=== PATIENT | male | born 1955 | race Caucasian/White ===

== ENCOUNTER 2018-01-21 09:11 | Inpatient (IN) ==
[2018-01-21 16:05] LABS: BASO# 0.01 X1000 (0.0-0.2); BASO% 0.1 % (0.0-0.8); EOS# 0.05 X1000 (0.0-0.7); EOS% 0.7 % (0.0-10.0); HEMATOCRIT 39.6 % (42.0-52.0); HEMOGLOBIN 12.9 g/dL (14.0-18.0); LYMPH# 1.58 X1000 (1.2-3.4); MCH 22.7 PG (27-31); MCHC 32.6 g/dL (33-37); MCV 69.6 FL (81-99); MONO# 0.59 X1000 (0.11-0.59); MONO% 8.6 % (1.7-9.3); MPV 10.3 FL (7.4-10.4); NEUT# 4.65 X1000 (1.4-6.5); NEUT% 67.6 % (42.2-75.2); PLT 193 X1000 (130-400); RBC 5.69 XMIL (4.7-6.1); RDW 18.2 % (11.5-14.5); WBC 6.88 X1000 (4.8-10.8)
[2018-01-21 16:10] LABS: AGAP 8; BUN 7 mg/dL (8-22); CALCIUM 9.4 mg/dL (8.8-10.2); CHLORIDE 101 mmol/L (98-107); COSMO 278; CREATININE 0.7 mg/dL (0.7-1.2); ESTIMATED GFR > 60; GLUCOSE 110 mg/dL (70-104); POTASSIUM 4.7 mmol/L (3.5-5.1); SODIUM 140 mmol/L (136-145); TCO2 31 mmol/L (25-35)
[2018-01-21 16:10] LABS: BILIRUBIN URINE NEGATIVE (NEGATIVE); BLOOD URINE NEGATIVE (NEGATIVE); COLOR YELLOW; GLUCOSE URINE NEGATIVE (NEGATIVE); KETONE URINE NEGATIVE (NEGATIVE); LEUKOCYTES URINE NEGATIVE (NEGATIVE); NITRITE URINE NEGATIVE (NEGATIVE); PH URINE 6.5; PROTEIN URINE NEGATIVE (NEGATIVE); SP GRAVITY URINE 1.004; TURBIDITY URINE CLEAR (CLEAR); UROBILINOGEN URINE 2 mg/dL (NORMAL)
[2018-01-21 16:11] LABS: UR EPITHELIAL CELLS <10 /HPF (<10); URINE BACTERIA NEGATIVE /HPF; URINE RBC <10 /HPF (<10); URINE WBC <10 /HPF (<10)
[2018-01-21 16:22] LABS: URINE SOURCE CLEAN CATCH
[2018-01-21 16:27] LABS: UR AMPHETAMINES QUAL NONE DETECTED (NONE DETECT); UR BARBITUATES QUAL NONE DETECTED (NONE DETECT); UR BENZODIAZEPIN QUAL NONE DETECTED (NONE DETECT); UR CANNABINOIDS QUAL NONE DETECTED (NONE DETECT); UR COCAINE QUAL NONE DETECTED (NONE DETECT); UR METHADONE QUAL NONE DETECTED (NONE DETECT); UR OPIATES QUAL NONE DETECTED (NONE DETECT); UR OXYCODONE QUAL NONE DETECTED (NONE DETECT); UR PCP QUAL NONE DETECTED (NONE DETECT)
--- NOTE | 2018-01-21 16:29 | Diag Imaging Result Doc PS360 ---
EXAM: CT HEAD W/O CONTRAST INDICATION: DISORIENTATION TECHNIQUE: This exam was performed using automated exposure control, adjustment of mA or kV according to patient size, and/or use of iterative reconstruction technique. COMPARISON: None. FINDINGS: There are at least two prominent and ill-defined frontal lobe masses on the right and the left and there is a mass near the midline of the cerebellum. The cerebellar mass measures approximately 3.1 x 3.1 cm. It is effacing the fourth ventricle and cerebral aqueduct. The lateral ventricles and fourth ventricle are somewhat prominent suggesting at least mild obstructive hydrocephalus. The dominant right frontal lobe mass measures up to 3.6 x 2.7 cm. The left frontal lobe mass measures up to 4.3 x 2.6 cm. All of these masses exhibit significant surrounding vasogenic edema. There also appears to be a small 7 mm parafalcine nodule in the right frontal lobe that can be seen on image 38. There is a another small mass in the right frontal lobe more inferiorly on image 16 measuring up to 13 mm. These lesions are most intracranial metastatic disease. No intracranial hemorrhage is appreciated. The surrounding soft tissues and bony structures are essentially unremarkable. IMPRESSION: 1.Bilateral frontal lobe masses and a central cerebellar mass, most with surrounding vasogenic edema most consistent with metastatic disease. 2.Effacement of the fourth ventricle and cerebral aqueduct by the cerebellar masses with associated mild dilation of the lateral ventricles and third ventricle. The findings were discussed with Flash Cohn MD at 01/21/2018 4:26 PM and was acknowledged. Electronically signed by Jared Vargas 01/21/2018 4:26 PM
[2018-01-21] MEDS ORDERED: KEPPRA 1,500 MG in NS 100 ML IV ONE (16:38)
[2018-01-21] MEDS ORDERED: DECADRON IV ONE (16:38)
--- NOTE | 2018-01-21 16:47 | PROVIDER DOCUMENTATION ---
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 CURRENTLY LIVING BY HIMSELF AND STATES HE FEELS SAD HE HAS NOT BEING IN TOUCH WITH OR DAUGHTER FOR YEARS AND FELT THEY LEFT HIM. Review of Systems - Adult - REVIEW OF SYSTEMS - ADULT Constitutional: denies: chills, fever, night sweats, weight loss Eyes: denies: discharge, blurred vision Ears, Nose, Mouth & Throat: reports: no symptoms reported Cardiovascular: reports: no symptoms reported Respiratory: reports: no symptoms reported Gastrointestinal: reports: no symptoms reported Genitourinary: reports: no symptoms reported Musculoskeletal: reports: no symptoms reported Integumentary: reports: no symptoms reported Neurological: reports: ataxia, dizziness/vertigo, loss of balance Psychiatric: reports: depression, emotional problems. denies: panic attacks, suicidal thoughts Endocrine: denies: cold intolerance, heat intolerance Past History - Adult - PAST MEDICAL HISTORY-ADULT Review of Records: reports: Old Records Reviewed Physical Exam-General - PHYSICAL EXAM-ADULT Initial Vital Signs Reviewed: Yes - CONSTITUTIONAL General Appearance: alert, no apparent distress, thin, slow to respond - EYES Eyes: PERRL/EOMI - HEAD, EARS, NOSE, MOUTH & THROAT HENMT: normocephalic/atraumatic, moist mucous membranes - NECK Neck: full range of motion - RESPIRATORY Respiratory: chest non-tender, lungs clear, normal breath sounds, no pleuratic chest pain, no respiratory distress, no accessory muscle use - CARDIOVASCULAR Cardiovascular: normal peripheral pulses, regular rate, rhythm, no edema, no gallop, no JVD - GASTROINTESTINAL (ABDOMEN) Abdominal Exam: normal bowel sounds, non tender, soft - MUSCULOSKELETAL Back Exam: normal inspection Extremity: normal range of motion, non-tender. negative: normal gait - SKIN Integumentary: normal color, normal turgor - NEUROLOGIC Neurologic: other (ATAXIA AND POOR FINGER TO NOSE EXAM). negative: facial droop , focal weakness, motor weakness - PSYCHIATRIC Psych/Mental Status: oriented x 3 (SLOW TO RESPOND.), other (BEHAVIOR CHANGES.) Progress - PLAN OF CARE/RESULTS Progress/Plan/Lab Results: Vital Signs - 8 hr 01/21/18 09:20 01/21/18 15:17 01/21/18 15:19 Temperature 97.5 F L Pulse Rate 75 70 66 Respiratory Rate 18 21 22 Blood Pressure 173/108 172/113 O2 Sat by Pulse Oximetry 98 96 01/21/18 15:20 01/21/18 15:30 01/21/18 15:40 Temperature Pulse Rate 64 72 67 Respiratory Rate 17 18 21 Blood Pressure O2 Sat by Pulse Oximetry 97 95 97 01/21/18 15:50 Temperature Pulse Rate 70 Respiratory Rate 15 Blood Pressure O2 Sat by Pulse Oximetry 95 Laboratory Results - last 24 hr 01/21/18 01/21/18 01/21/18 15:46 15:46 15:58 WBC 6.88 RBC 5.69 Hgb 12.9 L Hct 39.6 L MCV 69.6 L MCH 22.7 L MCHC 32.6 L RDW Std Deviation 18.2 H Plt Count 193 MPV 10.3 Neut % (Auto) 67.6 Lymph % (Auto) 23.0 [place] % (Auto) 8.6 Eos % (Auto) 0.7 Baso % (Auto) 0.1 Neut # (Auto) 4.65 Lymph # (Auto) 1.58 [place] # (Auto) 0.59 Eos # (Auto) 0.05 Baso # (Auto) 0.01 Sodium 140 Potassium 4.7 Chloride 101 Carbon Dioxide 31 Anion Gap 8 BUN 7 L Creatinine 0.7 Estimated GFR/1.73 m2 > 60 BUN/Creatinine Ratio 10 Glucose 110 H Calculated Osmolality 278 Calcium 9.4 Magnesium 2.0 Urine Source CLEAN CATCH Urine Color YELLOW Urine Turbidity CLEAR Urine pH 6.5 Ur Specific [place] 1.004 Urine Protein NEGATIVE Ur Glucose (Stick) NEGATIVE Ur Ketones (Stick) NEGATIVE Urine Blood NEGATIVE Urine Nitrite NEGATIVE Urine Bilirubin NEGATIVE Urobilinogen Dipstick 2 A Urine Leukocytes NEGATIVE Urine WBC (Auto) <10 Urine RBC (Auto) <10 U Epithel Cells (Auto) <10 Urine Bacteria (Auto) NEGATIVE Urine Opiates Screen Ur Oxycodone Screen Ur Methadone, Qual Ur Barbiturates Screen Ur Phencyclidine Scrn Ur Amphetamines Screen U Benzodiazepines Scrn Urine Cocaine Screen U Cannabinoids Screen 01/21/18 15:58 WBC RBC Hgb Hct MCV MCH MCHC RDW Std Deviation Plt Count MPV Neut % (Auto) Lymph % (Auto) [place] % (Auto) Eos % (Auto) Baso % (Auto) Neut # (Auto) Lymph # (Auto) [place] # (Auto) Eos # (Auto) Baso # (Auto) Sodium Potassium Chloride Carbon Dioxide Anion Gap BUN Creatinine Estimated GFR/1.73 m2 BUN/Creatinine Ratio Glucose Calculated Osmolality Calcium Magnesium Urine Source Urine Color Urine Turbidity Urine pH Ur Specific [place] Urine Protein Ur Glucose (Stick) Ur Ketones (Stick) Urine Blood Urine Nitrite Urine Bilirubin Urobilinogen Dipstick Urine Leukocytes Urine WBC (Auto) Urine RBC (Auto) U Epithel Cells (Auto) Urine Bacteria (Auto) Urine Opiates Screen NONE DETECTED Ur Oxycodone Screen NONE DETECTED Ur Methadone, Qual NONE DETECTED Ur Barbiturates Screen NONE DETECTED Ur Phencyclidine Scrn NONE DETECTED Ur Amphetamines Screen NONE DETECTED U Benzodiazepines Scrn NONE DETECTED Urine Cocaine Screen NONE DETECTED U Cannabinoids Screen NONE DETECTED Orders Category Date Time Status CT HEAD W/O CONTRAST [CT] Stat Exams 01/21/18 15:38 Completed cxr [CHEST-2 VIEWS] [RAD] Stat Exams 01/21/18 16:37 Ordered BASIC METABOLIC PANEL [CHEM] Stat Lab 01/21/18 15:46 Completed CBC WITH ELECTRONIC DIFF [HEME] Stat Lab 01/21/18 15:46 Completed MAGNESIUM [CHEM] Stat Lab 01/21/18 15:46 Completed URINALYSIS W/POSS RFLX CULT [URINALYSIS] Stat Lab 01/21/18 15:58 Completed URINE DRUG SCREEN Stat Lab 01/21/18 15:58 Completed Dexamethasone [Decadron] Med 01/21/18 16:38 Discontinued 10 mg IV NOW ONE Levetiracetam [Keppra] 1,500 mg Med 01/21/18 16:38 Active 0.9% Sodium Chloride Inj [Ns] 100 ml IV NOW Result Diagrams: 01/21/18 15:46 01/21/18 15:46 - REASSESSMENT Reassessment #1 Time Reassessed: 16:51 Status: other (RECEIVED CALL FROM RADIOLOGIST WITH MULTIPLE BRAIN METS AND ALSO HYDROCEPHALUS. I WILL START PATIENT ON DECADRONE 10MG IV AND KEPPRA 1500MG IV FOR SEUZIRE PRVENTION. GIVEN THAT PATIENT IS A CHRONIC SMOKER AND NO OTHER MEDICAL CONDITIONS; WILL GET PA/LAT CXR. PATIENT DOESN'T HAVE ANY SOCAIL SUPPORT. I HAVE CONSULT THE HOSPITALIST; APPRECIATE THEIR ASSISTANCE.) Reassessment #2 Time Reassessed: 17:15 Status: other (SPOKE TO THE [facility] WHO IS CURRENTLY[facility] FOR HEMO/ONCOLOGY TO CALL BACK AND WLL INFORM ME. APPRECIATE HOSPITALIST ASSITANCE.) Departure - Departure Date of Disposition Decision: 01/21/18 Time of Disposition Decision: 16:53 DIAGNOSIS: Brain metastases Disposition: ADMITTED INPATIENT 09 Certified Medical Emergency: Emergent Condition: Poor Referrals and Follow-Ups: None,PCP [Primary Care Provider] - - Critical Care Note This patient required my direct & personal management of CC.: No Attestation - Physician/ MICHAEL Attestation Patient care was provided by Advanced Practice Provider:: No The physician spent face to face time with patient:: Yes Advanced Practice Provider documentation review:: Supervising physician onsite and consulted in the evaluation and care of this patient. The physician did have a face to face encounter with the patient.
[2018-01-21] MEDS: NS 1,000 ML IV SCH (17:45)
--- NOTE | 2018-01-21 18:53 | Diag Imaging Result Doc PS360 ---
EXAM: CHEST-2 VIEWS INDICATION: MULTIPLE BRAIN METS; HEAVY SMOKER; NO OTHER MED HX TECHNIQUE: 2 views COMPARISON: None. FINDINGS: There is a vague mass involving the right midlung zone and the right hilum is prominent. This is suspicious for malignancy given the findings on recent head CT. There is no discrete pleural fluid collection or pneumothorax. The cardiac silhouette is unremarkable. IMPRESSION: Vague mass in the right midlung zone with a prominent right hilum suspicious for neoplasm. Electronically signed by Jared Vargas 01/21/2018 6:50 PM
[2018-01-21] MEDS ORDERED: ZOFRAN IV PRN (19:06)
--- NOTE | 2018-01-21 19:20 | Diag Imaging Result Doc PS360 ---
EXAM: CT THORAX/ABD/PELVIS W/CON INDICATION: metastatic brain cancer TECHNIQUE: This exam was performed using automated exposure control, adjustment of mA or kV according to patient size, and/or use of iterative reconstruction technique. COMPARISON: None. FINDINGS: CHEST: There is a right upper lobe lung mass that is highly suspicious for neoplasm. This is probably the primary malignancy that was the source of the metastatic brain lesions seen on a recent head CT. It measures 4.9 x 3.1 cm axially. There is also severe right hilar and mediastinal lymphadenopathy. For reference, there is a large right paratracheal kevyn mass that measures up to 5.6 x 3.5 cm axially. There is mild subsegmental atelectasis at the lung bases. There is mild cardiomegaly. There is nothing to suggest bony metastatic disease to the thorax. ABDOMEN/PELVIS: There is cholelithiasis including a very large calcified stone in the lumen of the gallbladder. No definite pericholecystic inflammatory changes appreciated. The liver, spleen, and pancreas are unremarkable. There are bilateral adrenal masses. They are somewhat low dense and may represent large adenomas. However, metastatic adrenal lesions cannot be excluded. The right adrenal mass measures 2.5 x 1.8 cm and the left adrenal mass measures up to 2.0 x 2.5 cm in the greatest axial dimensions. There is a small left renal cyst and a few left renal cortical defects suggesting mild scarring. The kidneys are unremarkable, otherwise. The urinary bladder wall appears somewhat thickened. Consider mild cystitis. Please correlate clinically. The prostate is also somewhat enlarged. This thickening could be due to trabecular thickening related to the enlarged prostate. There is increased stool in the rectum which is mildly distended. This may represent a small rectal fecal impaction. The appendix is normal. There is uncomplicated diverticulosis coli. The remainder of the GI tract is essentially unremarkable. There are degenerative changes throughout the spine. There is nothing to necessarily suggest bony metastatic disease to the abdomen or pelvis. IMPRESSION: 1.Right upper lobe lung mass and severe right hilar and mediastinal lymphadenopathy that is highly consistent with malignancy. 2.Bilateral adrenal masses that could represent large adenomas. However, metastatic lesions cannot be excluded. 3.Cholelithiasis. 4.Mild urinary bladder wall thickening. Correlate clinically to exclude a component of cystitis. 5.Questionable mild rectal fecal impaction. 6.Other external/nonacute findings detailed above. Electronically signed by Jared Villalobos/27/2018 7:18 PM
[2018-01-21] MEDS ORDERED: SODIUM CHLORIDE 0.9% 10 ML ONE (22:51)
[2018-01-21] MEDS: PROTONIX IV SCH (22:52)
[2018-01-21] MEDS: FLOMAX PO SCH (22:56)
[2018-01-22] MEDS: KEPPRA 500 MG in NS 100 ML IV SCH ×2 (03:49→15:50)
[2018-01-22] MEDS: DECADRON IV SCH ×4 (03:51→21:15)
--- NOTE | 2018-01-22 04:25 | HISTORY AND PHYSICAL ---
PRIMARY CARE PHYSICIAN: None. PRESENTING COMPLAINT: Generalized weakness, multiple falls, and unsteady gait. HISTORY OF PRESENTING COMPLAINT: Mr. Magdaleno is a 62-year-old male, with no significant past medical history, except for tobacco abuse and alcohol use, came to the emergency department because his friends have been concerned that he has been falling on the job. He also refers to be feeling remarkably weak. He has no appetite for the past couple months, and he thinks he has lost over 20 pounds in the last 2 to 3 months. 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 He came to the emergency department. He was evaluated. His initial vitals revealed blood pressure was 173/108, pulse 75, respiration 18, temperature 97.5. A CT scan of the brain was done, which shows multiple brain masses, with vasogenic edema. We were consulted for admission and further medical care. Initially, I understand [place] was consulted for neurosurgical evaluation. However, [place] is on diversion, and I have also discussed this case with the oncologist, and he is okay with the patient staying here in [facility]. PAST MEDICAL HISTORY: Unremarkable. PAST SURGICAL HISTORY: None. ALLERGIES: None. SOCIAL HISTORY: The patient lives by himself. He has a daughter who lives at a different city. He does not really maintain communication with her that much. 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 He has more than 40 years pack history, and he also drinks about 6 packs of beer on a daily basis. According to him, he has somehow cut down on the number of the drinks because he has just not been feeling well lately. REVIEW OF SYSTEMS: A 14-point review of systems conducted with Mr. Magdaleno unremarkable, except what we have in the HPI. Specifically, he denies any chest pain. He denies any hemoptysis. He denies any abdominal pain. No diarrhea. No hematemesis. PHYSICAL EXAMINATION: CURRENT VITALS: Blood pressure is 172/113, pulse is 64, respiration is 18, and temperature is 97.5. Patient is saturating 97% on room air. GENERAL: Mr. Magdaleno is a 62-year-old male. He was in bed. He was not in any remarkable cardiopulmonary distress. HEENT: Mucosa is pink, slightly dry. Anicteric. Acyanotic. He looks undernourished. Head is normocephalic and atraumatic. NECK: Supple. There is no JVD, no carotid bruit, and no thyromegaly. CHEST: The chest has a barrel shape. Air entry is bilaterally reduced. I did not hear any crepitations, but there is a prolonged expiratory phase of respiration. CARDIOVASCULAR: Regular rate and rhythm. There are no murmurs, no rubs, no gallops. [place] beat is at the 5th intercostal space, midclavicular line. GASTROINTESTINAL: Abdomen is soft, nontender. Bowel sounds are present. There is no hepatosplenomegaly. EXTREMITIES: No pedal edema. Distal pulses are present. GENITOURINARY: Unremarkable. I did not feel any masses of the scrotum. However, this was done over his pants because he felt slightly shy. CENTRAL NERVOUS SYSTEM: The patient was awake, alert, was oriented x4. Power was generally weak all over, about 4- over 5 in all extremities. Sensation was intact. Cranial nerves 2-12 were grossly examined, and they were unremarkable. I did not really examine his gait because of risk of fall, but his pupils were equal and reactive to light. I think he did have a little bit of nystagmus. LABORATORY DATA: WBC 6.88, hemoglobin is 12.9, platelet count of 193,000. Chemistry is also reviewed, and is completely normal. DIAGNOSTIC STUDIES: A CT scan of the head shows multiple frontal lobe masses, and a central cerebellar mass. ASSESSMENT AND PLAN: 1. Generalized weakness and multiple falls on presentation, likely due to the underlying malignancy. The CT scan shows multiple masses in the brain. We are not sure where the primary is. We are going to do a CT scan of the chest and abdomen. Oncology has already been consulted. We will consult Neurology as well. We will also consult Radiation Oncology. The patient will be started on Decadron and seizure prophylaxis. 2. Multiple bilateral brain masses, likely metastatic lesions, with surrounding vasogenic edema. Patient has been started on Decadron. Please see #1 as well. 3. Tobacco abuse. Patient has been counseled. We presume that the patient has a primary lung disease. 4. Suspected chronic obstructive pulmonary disease. The patient does have a prolonged expiratory phase of respiration, has a barrel shape. I think he has an undiagnosed chronic obstructive pulmonary disease. We will use nebulization p.r.n. if needed, and we will get a CT scan of the chest to have a better anatomy of his lungs. In general, I think Mr. Magdaleno is critical, has multiple masses in the brain. Primary is yet to be determined. We have ordered a CT scan of the abdomen and pelvis. We will review this. I have already notified Dr. Camacho. We have discussed the case. He recommends to keep the patient on Decadron 4 mg q.6, proton pump inhibitor, and consult Dr. Calvo tomorrow morning for radiation to be started. We will follow up with further recommendations from him and from the other subspecialties. cc: Lam Odom MD
[2018-01-22 05:53] LABS: AGAP 10; ALB/GLOB RATIO 1.2; ALBUMIN 3.7 g/dL (3.5-5.0); ALKALINE PHOSPHATASE 54 U/L (32-122); BUN 9 mg/dL (8-22); CALCIUM 8.7 mg/dL (8.8-10.2); CHLORIDE 103 mmol/L (98-107); COSMO 278; CREATININE 0.6 mg/dL (0.7-1.2); ESTIMATED GFR > 60; GLUCOSE 103 mg/dL (70-104); GOT 17 U/L (10-34); GPT 16 U/L (10-44); MAGNESIUM 1.9 mg/dL (1.5-2.7); POTASSIUM 4.4 mmol/L (3.5-5.1); SODIUM 140 mmol/L (136-145); TCO2 27 mmol/L (25-35); TOTAL BILIRUBIN 0.65 mg/dL (0.20-1.00); TOTAL PROTEIN 6.8 g/dL (6.3-8.3)
[2018-01-22 05:56] LABS: BASO# 0.01 X1000 (0.0-0.2); BASO% 0.1 % (0.0-0.8); HEMATOCRIT 39.4 % (42.0-52.0); HEMOGLOBIN 12.7 g/dL (14.0-18.0); LYMPH% 10.3 % (20.5-51.1); MCH 22.4 PG (27-31); MCHC 32.2 g/dL (33-37); MCV 69.4 FL (81-99); MONO# 0.21 X1000 (0.11-0.59); MONO% 3.1 % (1.7-9.3); MPV 10.7 FL (7.4-10.4); NEUT# 5.85 X1000 (1.4-6.5); NEUT% 86.5 % (42.2-75.2); PLT 196 X1000 (130-400); RBC 5.68 XMIL (4.7-6.1); WBC 6.77 X1000 (4.8-10.8)
[2018-01-22] MEDS: HUMULIN R SUBQ SCH ×4 (06:50→20:31)
[2018-01-22 07:16] LABS: IRON SATURATION 30 %; TIBC 251 ug/dL; TOTAL IRON 75 ug/dL (53-167); UNBOUND IRON 176 ug/dL (112-346)
[2018-01-22 07:32] LABS: FERRITIN 126 ng/mL (30-400)
--- NOTE | 2018-01-22 07:37 | PROGRESS NOTE ---
DATE: 01/22/2018 SUBJECTIVE: This morning, Mr. Magdaleno refers to be doing fairly okay. He said he feels slightly stronger but, for most part, he is generally weak. OBJECTIVE: Vital Signs: Blood pressure is 139/104, pulse is 74, respiration is 24, temperature is 98.4. General: Mr. Magdaleno is a 62-year-old gentleman. He is in bed. He was not in any cardiopulmonary distress. Mucosa is pink and moist. Anicteric. Acyanotic. Neck supple. No JVD. Chest: Air entry is bilaterally reduced. I think there is some mild rhonchi in the right posterior lung field. Cardiovascular: Regular rate and rhythm. No murmurs, no rubs, no gallops. Abdomen was soft, nontender. Bowel sounds present. CW OPERATOR: The patient is awake, alert, oriented, a little bit slow in his speech but, for the most part, he is very clear. His motor is generally 4/5 in all extremities. LABORATORY DATA: WBC is 6.77, hemoglobin is 12.7, platelet count 196,000. Chemistry is also reviewed. TSH is 0.22. LABORATORY DATA: A CT scan of the head was reviewed yesterday. A CT scan of the chest, abdomen, and pelvis showed that there is a right upper lobe mass and severe right hilar and mediastinal lymphadenopathy that is highly consistent with malignancy. There are bilateral adrenal masses that could represent a large adenomas; however, metastatic lesions cannot be excluded. There is cholelithiasis, and there is mild urinary bladder with thickening. The patient, however, denies any urinary symptoms. ASSESSMENT: 1. Generalized weakness and fall on presentation secondary to underlying malignancy. 2. Bilateral multiple brain metastasis, presumably metastatic lesions. Patient is currently on Decadron. Both Dr. Camacho and Radiation Oncology have all been consulted. 3. Large right upper lobe mass with severe right hilar and mediastinal lymphadenopathy highly suggestive of malignancy. We think this is probably the primary source. I will be waiting on the oncologist to review the patient so that we all can have a better idea where to get a sample. It will appear, however, that the lesion in the right upper lobe can be accessed through CT-guided biopsy. Will be pending Heme-Onc recommendations. 4. Suspected underlying chronic obstructive pulmonary disease. 5. Constipation. This will be addressed with bowel regimen. 6. Bilateral adrenal masses suspicious for metastases. 7. Thickened bladder wall with enlarged prostate most likely due to underlying benign prostatic hypertrophy. 8. Mild clinical volume depletion. The patient will continue with gentle hydration. In general, Mr. Magdaleno has a newly diagnosed malignancy, and we think the primary is coming from the lungs. I will be waiting on Heme-Onc evaluation today to discuss a better way to have a tissue diagnosis. The patient is also pending Dr. Calvo's evaluation to start radiation therapy on the brain because of the vasogenic and the other findings associated. cc: Lam Odom MD
--- NOTE | 2018-01-22 08:49 | CONSULTATION ---
DATE OF CONSULTATION: 01/22/2018 HISTORY OF PRESENT ILLNESS: Mr. Magdaleno is 62 years old and there is noncontrast CT evidence of multiple lesions with surrounding edema, concerning for metastatic disease. History from the patient is that he has not felt well for several weeks. He believes he has lost weight, but cannot be specific. He has lost appetite. He has had some headache in recent days. He has felt weak all over. He has not noticed weakness in one limb or group of limbs more than another. He has had some falls in the last few weeks. He feels clumsy, but does not notice clumsiness in one limb more than another. He has not noticed vision disturbance or speech difficulty. Appetite has been poor, but he has not had trouble chewing or swallowing. PAST HISTORY: He reports no history of diagnosis of cancer. He has not had serious head injury. He has never had diagnosed stroke, seizure, other neurologic event. SOCIAL HISTORY: He smokes cigarettes. He reports ethanol intake is approximately 1 pitcher of beer and a few or several shots of whiskey most days. PHYSICAL EXAMINATION: On exam, he is awake, alert, attentive. He appears tired , but otherwise appropriate. Speech is minimally dysarthric, but easily understood. Language function is intact. Head and neck are unremarkable. There is not meningismus. He has full visual [place] tested grossly by confrontational finger-counting. Extraocular movements are full. Facial motility is symmetric. Gag is intact. Tongue is midline. Shoulder shrug is good. He had quick fatigue with motor testing, but he was able to demonstrate good power throughout. Strength grade is at least 4+/5 in the deltoids. He has difficulty with [id number] and [id number] testing bilaterally, worse on the right. He has diminished proprioception at the great toe MTP joint bilaterally , also worse on the right. He reports good pinprick appreciation over the hands and arms, and proximally over the legs. He has diminished pinprick appreciation in a stocking pattern over the feet bilaterally , equal on the left and right. I did not test his gait. Reflexes are 1+ symmetrically at the wrists and trace at the ankles. Plantar response is silent bilaterally. IMPRESSION: Right worse than left ataxia, sense of generalized weakness without definite major motor deficit, clinical evidence of peripheral neuropathy. I suspect he has primary lung cancer in light of the CT findings and history of smoking. Other primary malignancy is not excluded. Oncology has been consulted. History is not typical of multifocal abscess. The peripheral neuropathy is more likely related to chronic alcohol use than to a subacute/ acute paraneoplastic process. Ataxia is likely related to the cerebellar findings on imaging with concern for posterior column myelopathy and B12 deficiency causing proprioception loss out of proportion to the primary sensory deficit. There may be some cognitive impairment associated with the frontal lesions, but I do not find definite hemiparesis at this point. I do not have any urgent suggestion from Neurology standpoint. Further plans will depend on Oncology workup. Thanks for asking Neurology to see Mr. Magdaleno. cc: MD HETAL Tavera III
--- NOTE | 2018-01-22 13:57 | HEMO/ONC CONSULTATION ---
DATE: 01/22/2018 CHIEF COMPLAINT: We are being consulted for further evaluation and management of multiple brain masses. HISTORY OF PRESENT ILLNESS: Mr. Magdaleno is a 62-year-old male who presented to the emergency department due to falling a lot, and according the patient says he has not been himself. The patient says he has also lost over approximately 20 pounds in the last couple months. The patient says he falls down without any major reason. The patient wanted to have a CT of the brain which was done and which showed multiple brain masses with some vasogenic edema. The patient was admitted at that time for further evaluation and management. PAST MEDICAL HISTORY: None. PAST SURGICAL HISTORY: None. ALLERGIES: No known drug allergies. FAMILY HISTORY: Noncontributory. SOCIAL HISTORY: The patient smokes cigarettes daily for the past 40 years. Patient also drinks about a six-pack of beer daily. The patient denies any illicit drug use. HOME MEDICATIONS: None. REVIEW OF SYSTEMS: Negative except as mentioned in HPI. PHYSICAL EXAM: Vital Signs: Temperature 98.5 degrees, heart rate 80, respiratory rate 26, blood pressure 135/96, saturation 100% on nasal cannula. General: Patient is awake, lying in bed, no acute distress noted. HEENT: Anicteric. Pupils PERRLA. Mucous membranes dry. Neck: Supple. Trachea midline. No JVD. Lymph node survey: No palpable lymphadenopathy. Chest: Bilateral breath sounds diminished bilaterally. Some mild rhonchi bilaterally as well. Cardiovascular: Normal S2. Regular rate and rhythm. No murmurs, rubs, or gallops. Gastrointestinal: Abdomen is soft, nontender. Bowel sounds present in all 4 quadrants. No hepatosplenomegaly noted. Skin: Warm, dry and intact. No petechiae, no clubbing, no rashes, no cyanosis. Neurological: Alert and oriented x3. LABORATORY DATA: White count 6.77, hemoglobin 12.7, hematocrit 39.4, platelets are 196,000. Potassium 4.4, BUN 9, creatinine 0.6. HDL of 5. CEA 7. Radiology reports- CT of the head showed bilateral frontal lobe masses and central cerebral mass with surrounding vasogenic edema, most consistent with metastatic disease. The patient with fourth ventricle and cerebral aqueduct by the cerebral masses associated with mild dilation of the lateral ventricles and 3rd ventricle. A CT of the chest, abdomen and pelvis showed right upper lobe lung mass and severe right hilar and mediastinal lymphadenopathy that is highly consistent with malignancy. Bilateral adrenal masses that could represent large adenomas; however, metastatic lesions cannot be excluded. Cholelithiasis, and mild urinary bladder thickening correlate clinically. ASSESSMENT AND PLAN: 1. Multiple brain masses: Multiple brain masses noted on CT with some vasogenic edema. Continue with Decadron and seizure prophylaxis as ordered by primary medical team and neurology. Dr. Calvo has been consulted for the patient for radiation. Continue to monitor closely. 2. Right upper lobe lung mass with severe right hilar and mediastinal lymphadenopathy: CEA is elevated at 7. Pulmonology has been consulted to evaluate for possible bronchoscopy with biopsies. Once we get the biopsies we can look at the pathology results and know what type of treatment will be best at that time. We will continue to monitor closely. 3. Generalized weakness with multiple falls: This is more likely due to his malignancy at this time. Continue to work on improving strength once patient is stable. Physical therapy has been consulted as well. Continue recommendation by primary medical team. 4. Tobacco abuse. Patient has been counseled. 5. GI prophylaxis: Continue Protonix, has been ordered. Plan of care discussed with Dr. Camacho. Dictated by KARMA Oliveros for Von Camacho MD Patient seen and examined. As above. Scans revealed right upper lobe lung mass with significant right hilar and mediastinal adenopathy and multiple brain metastasis with vasogenic edema. Dr. Calvo has been consulted. Patient is on steroids. Pulmonology has been consulted for biopsy. Well plan further management accordingly. Von Camacho M.D. cc: KARMA Oliveros MD [facility]
[2018-01-22] MEDS: NS 1,000 ML IV SCH (15:06)
[2018-01-22] MEDS: PROTONIX IV SCH (20:25)
[2018-01-22] MEDS: FLOMAX PO SCH (20:25)
[2018-01-23] MEDS ORDERED: ATIVAN IV ONE (03:19)
[2018-01-23] MEDS: KEPPRA 500 MG in NS 100 ML IV SCH ×2 (04:42→16:07)
[2018-01-23] MEDS: DECADRON IV SCH ×5 (04:44→22:08)
[2018-01-23 05:26] LABS: EOS# 0.01 X1000 (0.0-0.7); EOS% 0.1 % (0.0-10.0); HEMATOCRIT 38.5 % (42.0-52.0); HEMOGLOBIN 12.7 g/dL (14.0-18.0); IMM GRAN# 0.02 X1000 (0.0-0.04); IMM GRAN% 0.2 % (0.0-0.5); LYMPH# 1.08 X1000 (1.2-3.4); LYMPH% 9.8 % (20.5-51.1); MCH 22.7 PG (27-31); MCV 68.8 FL (81-99); MONO# 0.76 X1000 (0.11-0.59); MONO% 6.9 % (1.7-9.3); MPV 11.3 FL (7.4-10.4); NEUT# 9.14 X1000 (1.4-6.5); PLT 230 X1000 (130-400); RDW 16.5 % (11.5-14.5); WBC 11.01 X1000 (4.8-10.8)
[2018-01-23 05:31] LABS: AGAP 8; ALB/GLOB RATIO 1.2; ALBUMIN 3.7 g/dL (3.5-5.0); ALKALINE PHOSPHATASE 55 U/L (32-122); BUN 12 mg/dL (8-22); CALCIUM 8.9 mg/dL (8.8-10.2); CHLORIDE 104 mmol/L (98-107); COSMO 279; CREATININE 0.7 mg/dL (0.7-1.2); ESTIMATED GFR > 60; GLUCOSE 102 mg/dL (70-104); GOT 17 U/L (10-34); GPT 16 U/L (10-44); POTASSIUM 4.6 mmol/L (3.5-5.1); SODIUM 140 mmol/L (136-145); TCO2 28 mmol/L (25-35); TOTAL BILIRUBIN 0.52 mg/dL (0.20-1.00); TOTAL PROTEIN 6.9 g/dL (6.3-8.3)
[2018-01-23] MEDS: HUMULIN R SUBQ SCH ×4 (06:20→21:49)
--- NOTE | 2018-01-23 06:59 | PULMONOLOGY CONSULTATION ---
DATE: 01/22/2018 REASON FOR CONSULTATION: Lung mass with brain mets. HISTORY OF PRESENT ILLNESS: Mr. Magdaleno is a 62-year-old white male with extensive tobacco history, history of daily alcohol use who has been having episodes of weakness and falling with weight loss over the last 2-3 months. He reports he was treated for lung cancer at the [facility] in [place] approximately 3 years ago. By his description, no biopsy was performed. He reports it was a "laser" approach, but the manner of the treatment is not completely clear. He did not have an open surgical procedure. He reports he was scheduled to follow up every 3 months, but never returned for appropriate followup. He presented to the emergency room with some disorientation and CT scan revealed bilateral frontal lobe masses and a cerebellar mass with vasogenic edema. CT scan of the abdomen and pelvis today revealed a right upper lobe mass with significant right hilar and mediastinal adenopathy with bilateral adrenal masses. PAST MEDICAL HISTORY/PROBLEM LIST: 1. Prior treatment for lung cancer with failure to follow up as outlined above. 2. Daily alcohol use. SOCIAL HISTORY: Patient has ongoing tobacco use. He has daily alcohol use. 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 He is estranged from family. SURGICAL HISTORY: None reported. FAMILY HISTORY: Unremarkable to current presentation. PHYSICAL EXAMINATION: GENERAL: Reveals a thin white male who is awake, alert and conversant. VITAL SIGNS: BP 135/90. Heart rate 77, respiratory rate 16, oxygen saturation 94%. HEENT: Pupils are equal and reactive. Oropharynx appears clear. NECK: Supple. CHEST: Reveals prolonged expiratory phase. CARDIAC: S1, S2. ABDOMEN: Soft. EXTREMITIES: Without edema. NEUROLOGICAL: Cranial nerves 2-12 appear to be grossly intact. Gait not tested. LABORATORIES: CT scan of the brain and CT scan of the thorax as per above. Sodium 140, potassium 4.4, chloride 103, bicarbonate 27, BUN 9, creatinine 0.6. White blood count 6.77, hemoglobin 12.7, hematocrit 39.7, MCV 69.4. IMPRESSION: 62-year-old with a history of lung cancer by his description who presents with a lung mass with evidence of cerebral metastasis. The patient has daily tobacco and alcohol use. Interestingly, he has a microcytic anemia despite the alcohol use. RECOMMENDATIONS: 1. Request medical records from [facility] in [place] if these records can be located. 2. Anticipate bronchoscopy with biopsies on Saturday. cc: Efren Ivan MD
--- NOTE | 2018-01-23 08:58 | PROGRESS NOTE ---
DATE: 01/23/2018 SUBJECTIVE: This morning, Mr. Magdaleno refers to be fairly the same. He has really not made any changes overnight, but he says he feels slightly better. OBJECTIVE: Vital Signs: Blood pressure is 159/100, pulse 88, respiration is 24, temperature is 98.4. General: Mr. Magdaleno is a 62-year-old male. He is in bed. He is not in any cardiopulmonary distress. Mucosa is pink and moist. Anicteric. Acyanotic. Neck is supple. Chest: Good air entry bilaterally. There were no crepitations. No rhonchi. There is slightly increased expiratory phase of respiration. Cardiovascular: Regular rate and rhythm. No murmurs, no rubs, no gallops. Abdomen is soft. It is nontender. Bowel sounds present. Extremities: No pedal edema. POST ACUTE CARE NURSE: The patient is awake, alert. He is oriented to person but disoriented to place and to time, and he seems to have mild baseline cognitive impairment. LABORATORY DATA: WBC is 11.01, hemoglobin is 12.7, platelet count of 230,000. Chemistry is also reviewed and is completely normal. ASSESSMENT: 1. Generalized weakness and falls on presentation likely due to underlying malignancy. 2. Multiple bilateral brain met brain masses, likely metastasis from presumed lung primary. 3. Large right upper lobe mass with severe right hilar and mediastinal lymphadenopathy, highly suggestive of malignancy. Pulmonary Medicine has been consulted for biopsies. 4. Suspected underlying chronic obstructive pulmonary disease. The patient is currently not symptomatic. 5. Constipation. We will continue addressing this with bowel regimen. 6. Bilateral adrenal masses suspicious for metastasis. 7. Thickened bladder wall with enlarged prostate, likely due to benign prostatic hypertrophy. The patient was started on tamsulosin. 8. Clinical volume depletion, improved. We will discontinue the IV fluids. 9. History of alcohol abuse. I was told the patient was slightly agitated yesterday. There is concern that he could withdraw, so, we started him on Librium and p.r.n. Ativan just for prophylaxis. 10. Cognitive decline. I think it is probably a combination of the brain mass and also history of alcohol binging in the past could contribute to his neurological deficits. For now, we will start replacement with thiamine and other multivitamins. cc: Lam Odom MD
[2018-01-23] MEDS: THERA M PLUS PO SCH (09:29)
[2018-01-23] MEDS: LIBRIUM PO SCH ×2 (09:29→20:30)
[2018-01-23] MEDS: MIRALAX PO SCH (09:29)
[2018-01-23] MEDS: VITAMIN B-1 PO SCH (09:30)
[2018-01-23] MEDS: NS 1,000 ML IV SCH (09:30)
--- NOTE | 2018-01-23 11:05 | HEMO/ONC PROGRESS NOTE ---
DATE: 01/23/2018 SUBJECTIVE: Mr. Magdaleno says he may feel slightly better at this time. The patient denies any pain. The patient denies any other complaints at this time. OBJECTIVE: Vital signs: Temp 98.8, heart rate 71, respiratory rate 20, blood pressure 136/91, satting 96% on nasal cannula. General: The patient is awake, lying in bed, no acute distress noted. HEENT: Anicteric, pupils OLE. Mucous membranes noted to be moist. Cardiovascular: Normal S1, S2. Regular rate and rhythm. Chest: Bilateral breath sounds diminished bilaterally. Abdomen: Soft, nontender, bowel sounds present in all 4 quadrants. Neurologic: Alert and oriented x3, no focal deficits noted. LABORATORY DATA: White blood cell count was 11.01, hemoglobin 12.7, hematocrit 38.5, platelets are 230. Potassium 4.6, BUN 12, creatinine 0.7. ASSESSMENT AND PLAN: 1. Multiple brain masses: The patient will continue on steroids due to vasogenic edema. Continue with seizure prophylaxis, as well, as ordered by primary medical team. Dr. Calvo has been consulted, as well. Continue per recommendations. 2. Right upper lobe lung mass: Pulmonology plans on doing biopsies tomorrow. Continue to monitor. Once we get pathology results, we can make further recommendations. 3. GI prophylaxis. Continue Protonix as ordered. Plan of care discussed with Dr. Camacho. Dictated by KARMA Oliveros for Von Camacho MD Patient seen and examined. He had a lengthy discussion with with his family, daughter and sister. They well be unable to take care of him and live out of town. I think he has very poor social support at this time. Proceed with biopsy. Dr. Calvo is on board. Continue physical therapy. Continue Decadron. Comfort measures and hospice is very reasonable in this circumstance. Von Camacho M.D. cc: KARMA Oliveros MD [facility]
--- NOTE | 2018-01-23 15:40 | PROGRESS NOTE ---
DATE: 01/23/2018 Mr. Magdaleno is awake and alert. He seems a little bit brighter today. He does not have any new complaints. He still feels weak, but does not notice anything to be worse. There is nothing new neurologically. Further management plans will be determined by the lung biopsy results. No new suggestions from Neurology standpoint today. Thanks for asking us to see Mr. Magdaleno. cc: MD HETAL Tavera III
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
[2018-01-23] MEDS: PROTONIX IV SCH (20:29)
[2018-01-23] MEDS: FLOMAX PO SCH (20:30)
[2018-01-23] MEDS: NEURONTIN PO SCH (20:30)
[2018-01-23] MEDS: ATIVAN IV PRN (22:09)
[2018-01-24 02:16] LABS: URINE SOURCE CATH
[2018-01-24 02:18] LABS: BILIRUBIN URINE NEGATIVE (NEGATIVE); BLOOD URINE NEGATIVE (NEGATIVE); COLOR YELLOW; GLUCOSE URINE NEGATIVE (NEGATIVE); KETONE URINE NEGATIVE (NEGATIVE); LEUKOCYTES URINE NEGATIVE (NEGATIVE); NITRITE URINE NEGATIVE (NEGATIVE); PH URINE 6.5; PROTEIN URINE NEGATIVE (NEGATIVE); SP GRAVITY URINE 1.013; TURBIDITY URINE CLEAR (CLEAR); UROBILINOGEN URINE NORMAL (NORMAL)
[2018-01-24 02:19] LABS: UR EPITHELIAL CELLS <10 /HPF (<10); URINE BACTERIA NEGATIVE /HPF; URINE RBC <10 /HPF (<10); URINE WBC <10 /HPF (<10)
[2018-01-24] MEDS: DECADRON IV SCH ×4 (03:15→20:52)
[2018-01-24] MEDS: KEPPRA 500 MG in NS 100 ML IV SCH ×2 (03:15→16:45)
[2018-01-24] MEDS: ATIVAN IV PRN (03:26)
[2018-01-24 03:41] LABS: BASO# 0.01 X1000 (0.0-0.2); BASO% 0.1 % (0.0-0.8); HEMATOCRIT 37.7 % (42.0-52.0); HEMOGLOBIN 12.2 g/dL (14.0-18.0); IMM GRAN# 0.06 X1000 (0.0-0.04); IMM GRAN% 0.6 % (0.0-0.5); LYMPH# 0.78 X1000 (1.2-3.4); LYMPH% 7.3 % (20.5-51.1); MCH 22.4 PG (27-31); MCHC 32.4 g/dL (33-37); MCV 69.2 FL (81-99); MONO# 0.62 X1000 (0.11-0.59); MONO% 5.8 % (1.7-9.3); MPV 11.3 FL (7.4-10.4); NEUT# 9.15 X1000 (1.4-6.5); NEUT% 86.2 % (42.2-75.2); PLT 217 X1000 (130-400); RBC 5.45 XMIL (4.7-6.1); RDW 16.6 % (11.5-14.5); WBC 10.62 X1000 (4.8-10.8)
[2018-01-24 03:59] LABS: AGAP 11; BUN 14 mg/dL (8-22); CALCIUM 9.1 mg/dL (8.8-10.2); CHLORIDE 101 mmol/L (98-107); COSMO 283; CREATININE 0.6 mg/dL (0.7-1.2); ESTIMATED GFR > 60; GLUCOSE 113 mg/dL (70-104); PHOSPHORUS 3.4 mg/dL (2.7-4.5); POTASSIUM 4.1 mmol/L (3.5-5.1); SODIUM 141 mmol/L (136-145); TCO2 29 mmol/L (25-35)
[2018-01-24] MEDS: HUMULIN R SUBQ SCH ×4 (07:35→20:53)
[2018-01-24] MEDS: NS 1,000 ML IV SCH (08:50)
[2018-01-24] MEDS: MIRALAX PO SCH (08:51)
[2018-01-24] MEDS: THERA M PLUS PO SCH (08:51)
[2018-01-24] MEDS: LIBRIUM PO SCH ×2 (08:51→20:52)
[2018-01-24] MEDS: VITAMIN B-1 PO SCH (08:52)
[2018-01-24] MEDS ORDERED: EPINEPHRINE ONE (09:20)
[2018-01-24] MEDS ORDERED: XYLOCAINE 2% ONE (09:20)
[2018-01-24] MEDS ORDERED: SODIUM CHLORIDE 0.9% 20 ML ONE (09:21)
[2018-01-24] MEDS ORDERED: XYLOCAINE 2% VISCOUS ONE (09:21)
[2018-01-24] MEDS ORDERED: DIPRIVAN 1% ONE ×2 (09:39→10:31)
[2018-01-24] MEDS ORDERED: FENTANYL ONE (09:40)
--- NOTE | 2018-01-24 11:39 | OPERATIVE NOTE ---
PROCEDURE DATE : 01/24/2018 PROCEDURE PERFORMED: Bronchoscopy with endobronchial biopsies and Galloway needle aspiration. CLINICAL INDICATIONS: Lung mass with evidence of cerebral metastasis. DESCRIPTION OF PROCEDURE: After informed consent was obtained, the patient was brought to the operating room where the procedure was performed. Topical anesthesia was achieved with viscous lidocaine to the right nostril with 2% lidocaine instilled above the vocal cords, 1% lidocaine instilled below the vocal cords. When conscious sedation and topical anesthesia were achieved, bronchoscope was advanced through the right nostril to the level of the vocal cords. Vocal cords were visualized and had normal movement. The bronchoscope was advanced into the trachea. There was increase in clear to yellow bronchial secretions which were suctioned clear. Airways to the left upper lobe, lingula, and left lower lobe were patent and without lesions. The airway to the right upper lobe was examined. There were only two airway segments. It was not clear if this was an anatomic variant or if one airway was atretic due to tumor. There was only a minimal amount of mucosal abnormality that was visualized which appeared to be tumor. Video image was obtained. Multiple biopsies were taken from the small area of apparent visualized tumor. After these were obtained, the forceps was placed into any anteriorly directed segment and additional biopsies were performed. Bleeding did occur with biopsies of the area that appeared to be tumor, and topical epinephrine was instilled into this area for hemostasis. When hemostasis had been achieved, bronchoscope was retracted back to the distal trachea. Multiple Galloway needle aspirates were taken from the distal trachea in the 2 o'clock position (6 o'clock position on the membranous portion of the trachea posteriorly). The patient tolerated the procedure without difficulty. cc: Efren Ivan MD
--- NOTE | 2018-01-24 12:22 | HEMO/ONC PROGRESS NOTE ---
DATE: 01/24/2018 SUBJECTIVE: The patient has no new complaints at this time. The patient says he still feels slightly weak, though. OBJECTIVE: Vital Signs: Temperature 98.1 degrees, heart rate 82, respiratory rate 21, blood pressure 139/97, satting 94% on nasal cannula. General: Patient is awake, lying in bed, no acute distress noted. HEENT: Anicteric. Pupils PERRLA. Mucous membranes appear to be moist. Cardiovascular: Normal S1, S2. Regular rate and rhythm. Chest: Bilateral breath sounds diminished bilaterally. Abdomen: Soft, nontender. Bowel sounds present in all 4 quadrants. Neurologic: Alert and oriented. No focal deficits noted. LABORATORY DATA: White blood cell count 10.16, hemoglobin 12.2, hematocrit 37.7, platelets are 217. Potassium 4.1, BUN 14, creatinine 0.6. CEA is 7.0. ASSESSMENT AND PLAN: 1. Multiple brain metastases: Continue with steroids as ordered by primary medical team. Continue to monitor. 2. Right upper lobe lung mass: The patient will go for a biopsy with disease management nurse today. Once we get those results, we will make further recommendations from pathology. Continue to monitor. 3. Generalized weakness: Continue physical therapy as ordered. Continue to have patient get stronger. 4. Gastrointestinal prophylaxis. Continue with proton pump inhibitors. Dictated by KARMA Oliveros for Von Camacho MD cc: KARMA Oliveros MD
--- NOTE | 2018-01-24 12:38 | PROGRESS NOTE ---
DATE: 01/24/2018 SUBJECTIVE: Mr. Magdaleno is about the same. OBJECTIVE: Vital Signs: T-max is 99 degrees, pulse 78, respirations 18, blood pressure 133/91. Lungs: Clear in all lung [place]. Cardiovascular: Regular rhythm and rate without murmur or S3. Abdomen: Soft. Skin: Warm and dry. LABORATORY STUDIES: Urine output is 1800 mL. Blood sugars are 134, 113, 109. ASSESSMENT AND PLAN: 1. Generalized weakness and falls, presented likely due to underlying malignancy. 2. Multiple bilateral brain metastases and suspect lung is primary. 3. Large right upper lobe mass, severe right hilar mediastinal lymphadenopathy, highly suggestive of malignancy. Is for bronchoscopy this morning. 4. Suspect underlying chronic obstructive pulmonary disease. 5. Constipation. Continue bowel regimen. 6. Bilateral adrenal masses, suspicious for malignancy. 7. Thickened bladder wall, enlarged prostate likely due to benign prostatic hypertrophy. The patient is on tamsulosin. 8. Chronic volume depletion, improved. 9. History of alcohol abuse. Watching for signs of withdrawals and try to treat appropriately. 10. Cognitive decline. Probably a combination of bone metastases and history of alcohol which could be contributing to his neurologic deficits. REVIEW OF ORDERS: In looking at his orders, he is going to get a bronchoscopy. I do not see any change at this point. He is on Neurontin 100 mg at bedtime, Flomax 0.4 mg at bedtime. He is getting Librium 5 mg p.o. b.i.d., dexamethasone 4 mg IV q.6 h. for his brain metastases, levetiracetam 500 mg IV q.12 h. for seizure prevention, and Ativan 1 mg IV q.4 h. p.r.n. He is on a multivitamin. Getting fluids at normal saline at 50 mL an hour, Protonix 40 mg q.24 h., polyethylene glycol 17 g a day, thiamine 100 mg a day, Ativan 1 mg IV as needed for alcohol withdrawals. cc: Nirav Colby MD
[2018-01-24] MEDS: FLOMAX PO SCH (20:52)
[2018-01-24] MEDS: PROTONIX IV SCH (20:52)
[2018-01-24] MEDS: NEURONTIN PO SCH (20:52)
[2018-01-25] MEDS: DECADRON IV SCH ×4 (04:50→21:03)
[2018-01-25] MEDS: KEPPRA 500 MG in NS 100 ML IV SCH ×2 (04:58→16:54)
[2018-01-25] MEDS: NS 1,000 ML IV SCH ×2 (05:05→15:58)
[2018-01-25] MEDS: HUMULIN R SUBQ SCH ×4 (06:12→22:24)
--- NOTE | 2018-01-25 08:07 | PROGRESS NOTE ---
DATE: 01/25/2018 SUBJECTIVE: This morning Mr. Magdaleno seems slightly drowsy. He was sleeping, but is not arousable. According to the nurse, he has been pretty confused and disoriented throughout yesterday. OBJECTIVE: Vital signs: Blood pressure is 138/101, respiration is 12, pulse is 59, temperature is 98.9 degrees. General exam: Mr. Magdaleno is a 62-year-old male. He is in bed. He did not seem to be in any cardiopulmonary distress. HEENT: Mucosa was pink and moist. Anicteric. Acyanotic. Neck: Supple. Chest: Good air entry bilateral. No crepitations. No rhonchi. Cardiovascular: Regular rate and rhythm. No murmurs, no rubs, no gallops. Abdomen: Soft. It is nontender. Bowel sounds present. 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 He looks slightly more confused, but he would follow some basic commands. LABORATORY DATA: No lab work for today. Surgery done yesterday shows the patient is status post bronchoscopy with endobronchial biopsies and 1 needle aspiration. ASSESSMENT: 1. Generalized weakness and falls on presentation secondary to poor nutritional status and underlying malignancy. 2. Multiple bilateral brain metastases presumably from lung primary. 3. Altered mental status. We think is a combination of the brain metastases and possibly alcohol withdrawal. 4. Large right upper lobe mass with severe right hilar and mediastinal lymphadenopathy. Patient is status post bronchoscopy with biopsies. We are pending the report. 5. Suspected chronic obstructive pulmonary disease. The patient is currently asymptomatic. We will use as-needed nebulizations. 6. Thickened bladder wall with enlarged prostate, likely due to benign prostatic hyperplasia. Patient is currently on tamsulosin. Martinez catheter is in place. He is urinating well. 7. Clinical volume depletion improved. Intravenous fluids have been discontinued. 8. History of alcohol abuse. The patient is slightly altered this morning. I am not sure if it is from alcohol withdrawal or is a combination of this and the brain metastasis. He is on Librium and as-needed Ativan. 9. Cognitive decline. 10. History of bladder cancer in the past. According to the daughter and the sister, the patient was treated about 4 years ago in [facility] for bladder cancer. Nobody really knows if he did follow up on that. Social support: Mr. Magdaleno has been living alone for a very long time. He does not really have a very good relationship with the daughter or the sister for a very long time. From the palliative note, these 2 people are still willing to help with the decision making. However, it appears that nobody will be with him if he needs any care at home, which means that Mr. Magdaleno will, in terms of his disposition, need to look at placement. cc: Lam Odom MD MTDD
[2018-01-25] MEDS: MIRALAX PO SCH (09:06)
[2018-01-25] MEDS: VITAMIN B-1 PO SCH (09:07)
[2018-01-25] MEDS: THERA M PLUS PO SCH (09:07)
[2018-01-25] MEDS: LIBRIUM PO SCH ×2 (09:07→21:03)
[2018-01-25] MEDS: PROTONIX IV SCH (21:02)
[2018-01-25] MEDS: FLOMAX PO SCH (21:03)
[2018-01-25] MEDS: NEURONTIN PO SCH (21:03)
[2018-01-26] MEDS: DECADRON IV SCH ×5 (04:30→22:30)
[2018-01-26] MEDS: KEPPRA 500 MG in NS 100 ML IV SCH ×2 (04:30→17:10)
[2018-01-26] MEDS: TYLENOL PO PRN (04:40)
[2018-01-26] MEDS: NS 1,000 ML IV SCH ×2 (06:30→14:38)
[2018-01-26] MEDS: HUMULIN R SUBQ SCH ×4 (07:00→22:32)
[2018-01-26] MEDS: VITAMIN B-1 PO SCH (08:31)
[2018-01-26] MEDS: THERA M PLUS PO SCH (08:32)
[2018-01-26] MEDS: MIRALAX PO SCH (08:32)
[2018-01-26] MEDS: LIBRIUM PO SCH (08:36)
--- NOTE | 2018-01-26 11:41 | PROGRESS NOTE ---
DATE: 01/26/2018 SUBJECTIVE: This morning, Mr. Magdaleno refers to be doing okay. He was a lot more alert than yesterday. OBJECTIVE: Vital Signs: Blood pressure is 135/86, pulse is 66, respirations are 18, temperature is 98.4 degrees, the patient was saturating 97% on nasal cannula. General Examination: Mr. Magdaleno is a 62-year-old, gentleman. He was in bed. No distress. HEENT: Mucosa is pink and slightly dry. Anicteric. Acyanotic. Neck: Supple. Chest: Good air entry bilateral. There were no crepitations, no rhonchi. Cardiovascular: Regular rate and rhythm. No murmurs, no rubs, no gallops. GI: Abdomen was soft, nontender. Bowel sounds present. There was no hepatosplenomegaly. 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 Follows basic commands. There is not any motor deficit. Laboratory Data: None for today. The patient's bronchial wash did show gram- negative rods. ASSESSMENT: 1. Generalized weakness and falls on presentation secondary to poor nutritional status and underlying malignancy. 2. Multiple bilateral brain metastases, presumably from lung primary. 3. Altered mental status, improving. 4. Large right upper lobe mass with severe right hilar and mediastinal lymphadenopathy. The patient is status post bronchoscopy with biopsies. We are pending the tissue diagnosis. 5. Suspected some chronic obstructive pulmonary disease with bronchial lavage. Culture positive for gram-negative rods. We started the patient on ceftriaxone. 6. Thickened bladder with enlarged prostate, likely due benign prostatic hypertrophy. Patient is on tamsulosin. Martinez catheter is in place. We are going to remove that today. 7. Clinical volume depletion, improving on intravenous fluids. 8. History of alcohol abuse with suspicion of possible withdrawal in the intensive care unit. The patient has been started on Librium and as needed Ativan. 9. Cognitive decline noted. 10. History of bladder cancer in the past. 11. Poor social support. PLAN: In general, I think Mr. Magdaleno is fairly stable. He does have what appears to be a metastatic lung cancer which we are pending the tissue diagnosis from the bronchoscopy sample. So far, the BAAL culture is positive for a gram-negative stella. We are treating the patient for superimposed pneumonia/bronchitis with ceftriaxone. cc: MD HETAL Young
[2018-01-26] MEDS: ROCEPHIN 1 GM in NS 50 ML IV SCH (13:11)
--- NOTE | 2018-01-26 17:55 | PULMONOLOGY PROGRESS NOTE ---
DATE: 01/26/2018 SUBJECTIVE: The patient is more awake and more conversant. He is without complaints. OBJECTIVE: Vital signs: The patient is afebrile. Clinical exam has not changed. LABORATORY: Sputum culture reveals a gram-negative stella. IMPRESSION: 62-year-old with lung mass, evidence of cerebral metastasis and gram negative stella on bronchoscopy. RECOMMENDATIONS: 1. Agree with antibiotics per Dr. Odom. 2. Await bronchoscopy biopsy reports. cc: Efren Ivan MD
[2018-01-26] MEDS: FLOMAX PO SCH (22:30)
[2018-01-26] MEDS: NEURONTIN PO SCH (22:30)
[2018-01-26] MEDS: PROTONIX IV SCH (22:31)
[2018-01-27] MEDS: TYLENOL PO PRN (01:34)
[2018-01-27] MEDS: KEPPRA 500 MG in NS 100 ML IV SCH ×2 (04:58→16:50)
[2018-01-27] MEDS: DECADRON IV SCH ×4 (04:59→23:10)
[2018-01-27 06:24] LABS: AGAP 6; ALBUMIN 3.5 g/dL (3.5-5.0); BUN 15 mg/dL (8-22); CALCIUM 8.8 mg/dL (8.8-10.2); CHLORIDE 101 mmol/L (98-107); COSMO 279; CREATININE 0.5 mg/dL (0.7-1.2); ESTIMATED GFR > 60; GLUCOSE 105 mg/dL (70-104); PHOSPHORUS 3.7 mg/dL (2.7-4.5); POTASSIUM 4.3 mmol/L (3.5-5.1); SODIUM 139 mmol/L (136-145); TCO2 32 mmol/L (25-35)
[2018-01-27] MEDS: HUMULIN R SUBQ SCH ×4 (06:24→23:09)
[2018-01-27 06:34] LABS: HEMATOCRIT 38.7 % (42.0-52.0); HEMOGLOBIN 12.4 g/dL (14.0-18.0); IMM GRAN# 0.03 X1000 (0.0-0.04); IMM GRAN% 0.3 % (0.0-0.5); LYMPH# 1.01 X1000 (1.2-3.4); LYMPH% 10.4 % (20.5-51.1); MCH 22.3 PG (27-31); MCV 69.6 FL (81-99); MONO% 8.3 % (1.7-9.3); MPV 11.3 FL (7.4-10.4); NEUT# 7.83 X1000 (1.4-6.5); PLT 202 X1000 (130-400); RBC 5.56 XMIL (4.7-6.1); RDW 16.4 % (11.5-14.5); WBC 9.67 X1000 (4.8-10.8)
[2018-01-27 06:42] LABS: LYMPHS 10 % (21-51); MICROCYTOSIS 1+; MONO 6 % (1-9); NRBC 2 % (0-0); SEGS 84 % (42-75)
[2018-01-27] MEDS: LIBRIUM PO SCH (09:47)
[2018-01-27] MEDS: THERA M PLUS PO SCH (09:48)
[2018-01-27] MEDS: VITAMIN B-1 PO SCH (09:48)
[2018-01-27] MEDS: MIRALAX PO SCH (09:48)
--- NOTE | 2018-01-27 10:24 | Diag Imaging Result Doc PS360 ---
EXAM: CHEST-2 VIEWS 01/27/2018 HISTORY: hypoxia TECHNIQUE: PA and lateral chest COMMENT: There is marked right paratracheal adenopathy and probable hilar adenopathy with a nodular opacity over the right upper lobe. This was also present on 01/21/2018 IMPRESSION: Mediastinal, right hilar adenopathy and right upper lobe mass similar in appearance to 01/21/2018. Electronically signed by Familia Serrano 01/27/2018 10:22 AM
--- NOTE | 2018-01-27 10:26 | PROGRESS NOTE ---
DATE: 01/27/2018 SUBJECTIVE: This morning Mr. Magdaleno refers to be doing a little better. He feels stronger. No acute complaints. OBJECTIVE: Vital signs: Blood pressure 118/72, pulse 79, respirations 18, temperature 98.0 degrees. General: Mr. Magdaleno is a 62-year-old gentleman. He was in bed. He was not in any cardiopulmonary distress. HEENT: Mucosa is pink and moist. Anicteric. Acyanotic. Neck: Supple. Respiratory System: There is good air entry bilaterally. No crepitations. No rhonchi. Cardiovascular: Regular rate and rhythm. No murmurs. No rubs. No gallops. Abdomen: Soft, nontender. Bowel sounds present. There is no hepatosplenomegaly. Central nervous system: The patient is awake and alert. Follows basic commands, but he is remarkably slow in responding to interrogation. LABORATORY DATA: WBC 9.67, hemoglobin 12.4, platelet count 203,000. Chemistry is also reviewed, completely normal. CURRENT MEDICATIONS: 1. Ceftriaxone 1 g q.24. Today will be day 1. 2. Librium 5 mg daily. 3. Decadron 4 mg IV q.6. 4. Gabapentin 100 mg at bedtime. 5. Sliding scale insulin. 6. Levothyroxine 500 q.12. 7. Ativan p.r.n. 8. PPI. ASSESSMENT: 1. Generalized weakness and falls on presentation, presumably due to poor nutritional status, dehydration, and underlying malignancy. The patient seems to be getting a little better during the hospital course. Physical Therapy is on board. 2. Multiple bilateral brain metastases, presumably from lung primary. The patient is currently on intravenous Decadron. Neurology and Hematology/Oncology are on board. 3. Altered mental status on presentation, improved. We think this was a combination of the brain disease and it appeared the patient was having some withdrawal symptoms from alcohol, which seem to be better now. 4. Large right upper lobe mass with severe right hilar and mediastinal lymphadenopathy. The patient is status post bronchoscopy. We are still pending the tissue diagnosis. 5. Suspected chronic obstructive pulmonary disease with Haemophilus influenzae pneumonia. The patient is on ceftriaxone. Today is day 1. Will plan to treat this for a total of 7 days. 6. Benign prostatic hypertrophy with thickened bladder. The patient is on tamsulosin. Martinez catheter has been removed and he is making adequate urine. 7. Clinical volume depletion, improved. 8. History of alcohol abuse with withdrawal symptoms in the intensive care unit. This has improved with Librium and as-needed Ativan. 9. Cognitive decline, noted. 10. Remote history of bladder cancer. 11. Poor social support. The patient only has a daughter and a sister who never used to keep very close relationships with him, but it appears they are willing to help with his medical care. Both Palliative Medicine and Social Work are working with the family. PLAN: In general, I think Mr. Magdaleno is getting better. He is going to continue with antibiotics for a total of 7 days for the Haemophilus influenzae suspected pneumonia on top of the lung mass. We are pending the pathology report and also final arrangement for treatment with Heme/Onc. Palliative nurse and social media marketing analyst are also discussing discharge planning with the family. cc: Lam Odom MD MTDD
[2018-01-27] MEDS: ROCEPHIN 1 GM in NS 50 ML IV SCH (13:33)
--- NOTE | 2018-01-27 13:59 | HEMO/ONC PROGRESS NOTE ---
DATE: 01/27/2018 SUBJECTIVE: The patient says he continues to slowly feel better. The patient says his strength is slowly improving. OBJECTIVE: Vital Signs: Temperature 98.0 degrees, heart rate 79, respiratory rate 18, blood pressure 118/72, saturation 99% on nasal cannula. General: The patient is awake, lying in bed. No acute distress noted. HEENT: Anicteric. Pupils PERRLA. Mucous membranes noted to be dry. Cardiovascular: S1, S2. Regular rate and rhythm. Chest: Bilateral breath sounds with rhonchi bilaterally. Abdomen: Soft, nontender. Bowel sounds present in all 4 quadrants. Neurologic: Alert and oriented x3. No focal deficits noted. LABORATORY DATA: White blood cell count 9.67, hemoglobin 10.9, hematocrit 38.7 , platelets 202,000. Potassium 4.3, BUN 15, creatinine 0.5. ASSESSMENT AND PLAN: 1. Multiple brain metastases: Continue steroids as ordered. The patient needs to be followed up with Dr. Calvo for radiation. Continue recommendations by Neurology and radiation oncologist. 2. Right upper lobe lung mass: Pathology results are pending. The patient needs to continue to get stronger before getting chemotherapy. Plan is to have the patient follow up outpatient in about 3 to 4 weeks to discuss further treatment with us at that time. Otherwise, no new recommendations at this time. 3. Generalized weakness: Continue physical therapy. Continue to have the patient get stronger. Continue to have the patient drink protein shakes q.i.d. Once the patient is stronger, we can evaluate for treatment at that time. Dictated by KARMA Oliveros for Von Camacho MD cc: KARMA Oliveros MD [facility]
[2018-01-27] MEDS: NS 1,000 ML IV SCH (16:56)
[2018-01-27] MEDS: PROTONIX IV SCH (23:09)
[2018-01-27] MEDS: FLOMAX PO SCH (23:10)
[2018-01-27] MEDS: NEURONTIN PO SCH (23:10)
[2018-01-28] MEDS: NS 1,000 ML IV SCH ×3 (03:21→16:33)
[2018-01-28] MEDS: DECADRON IV SCH ×4 (03:21→22:18)
[2018-01-28] MEDS: KEPPRA 500 MG in NS 100 ML IV SCH ×2 (03:47→18:08)
[2018-01-28] MEDS: HUMULIN R SUBQ SCH ×4 (06:28→22:19)
[2018-01-28] MEDS: MIRALAX PO SCH (08:36)
[2018-01-28] MEDS: THERA M PLUS PO SCH (08:36)
[2018-01-28] MEDS: LIBRIUM PO SCH (08:36)
[2018-01-28] MEDS: VITAMIN B-1 PO SCH (08:36)
--- NOTE | 2018-01-28 09:21 | PROGRESS NOTE ---
DATE: 01/28/2018 INTERIM HISTORY: Mr. Magdaleno is doing well today and reports himself to be comfortable. He had a lung biopsy last week and official results are pending, but preliminary suggests probable small cell. I have discussed these results with the patient and made a recommendation for whole brain radiation therapy. We have reviewed the risks and benefits of radiation therapy in detail, as well as the expected short and long-term side effects treatment. The patient is in agreement with the treatment plan. I will schedule him for simulation hopefully today. If it cannot be done today, we will get it done first thing in the morning. Will start treatment very shortly following a simulation. If the patient goes home in the interim, he can continue his treatment as an outpatient. cc: Shahida Calvo MD
--- NOTE | 2018-01-28 09:36 | PROGRESS NOTE ---
DATE: 01/28/2018 SUBJECTIVE: He came in with generalized weakness, multiple falls, unsteady gait. A 62 year old with no significant past medical history, except for tobacco use and alcohol use. He came to the emergency department because his friends were concerned. He has been falling on-the-job, has been feeling very weak. Had no appetite for a couple months. Lost about 20 pounds in 2 to 3 months. 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 Recently, he had been falling down without major reason. In the emergency room, initial vitals revealed blood pressure was 173/108, pulse 75, respirations 18. CT scan of the brain showed multiple brain masses with vasogenic edema and so was admitted to the hospital. Today, he is sitting up eating breakfast. He says he has no complaints of pain. Remains afebrile. OBJECTIVE: Vital Signs: Temperature 97.9 degrees, pulse 70, respirations 18, blood pressure 129/80. Eyes: Pupils are equal and round. Lungs: Clear in all lung [place]. Cardiovascular exam: Regular rhythm and rate without murmur or S3. Weight is 165 pounds. Urine output was over [address] Ivan had done a bronchoscopy with lung mass pathology pending. ASSESSMENT AND PLAN: 1. Generalized weakness, falls, presently likely due to underlying malignancy. 2. Multiple bilateral brain metastases, suspect lung as primary. 3. Large right upper lobe mass, severe right hilar mediastinal lymphadenopathy highly suggestive of malignancy. Has undergone bronchoscopy. Await pathology. 4. Suspect underlying chronic obstructive pulmonary disease. 5. Constipation. Continue bowel regimen. 6. Bilateral adrenal masses suspicious for malignancy. 7. Thickened bladder wall. Enlarged prostate due to benign prostatic hypertrophy. The patient is on tamsulosin. 8. Chronic volume depletion, improved. 9. History of alcohol abuse. Watching for signs of withdrawal. 10. Cognitive decline. Probably combination metastasis and possible alcohol withdrawal. We will continue. I think the plan is to start radiation treatment tomorrow per Dr. Calvo. REVIEW OF ORDERS: I do not see any change at this point. He is on levothyroxine 500 mg IV q. 12. He is on ceftriaxone 1 gram q. 24 hours Flomax 0.4 mg at bedtime, Neurontin 100 mg at bedtime, and he is on Decadron 4 mg IV q. 6 hours. We have the Ativan on board in case of signs of alcohol withdrawal. cc: Nirav Colby MD
[2018-01-28] MEDS: ROCEPHIN 1 GM in NS 50 ML IV SCH (11:17)
--- NOTE | 2018-01-28 12:54 | CONSULTATION ---
DATE OF CONSULTATION: 01/23/2018 REASON FOR CONSULTATION: Brain metastases with unknown primary, but suspected lung cancer. HISTORY OF PRESENT ILLNESS: Mr. Magdaleno is a 62-year-old gentleman who presented to the emergency room after his coworkers noted that he had been falling quite a bit. He has also lost about 20 pounds over the last several months. The patient presented to the emergency room and a CT of the head was done. This revealed bilateral frontal lobe masses and a central cerebral mass with surrounding vasogenic edema. The patient was placed on Decadron. He had CT of the chest, abdomen, and pelvis which showed a right upper lobe mass as well was hilar and mediastinal lymphadenopathy. He was also noted to have bilateral adrenal masses, which could represent large adenomas or metastatic lesions. At this time, biopsy is pending but I have been consulted for consideration of whole brain radiation therapy. REVIEW OF SYSTEMS: The patient reports some occasional headaches. He denies any dizziness. He reports falls as per the history of present illness. He denies any specific musculoskeletal weakness. PAST MEDICAL HISTORY: None significant. PAST SURGICAL HISTORY: None. HOME MEDICATIONS: None. ALLERGIES: No known drug allergies. SOCIAL HISTORY: The patient lives by himself. He has a coworker with him today who says he is not really in touch with any of his family. He has a [id number] history of tobacco use. He drinks daily. PHYSICAL EXAMINATION: Vital Signs: Per the hospital record. General: The patient is lying comfortably in bed, in no acute distress. HEENT: Normocephalic, atraumatic. Neck: Supple. Lungs: Clear to auscultation. Heart: Regular rate and rhythm. Abdomen: Soft and nontender. Extremities: No edema. Neurologic: Exam reveals cranial nerves 2-12 to be intact. There is no specific motor or sensory deficit in the upper or lower extremities. ASSESSMENT AND PLAN: In summary, this is a 62-year-old gentleman who presents with what appears to be a metastatic lung cancer with brain metastases. He is currently stable on Decadron. We will await pathology results prior to making recommendations for radiation, but suspect he will need whole brain radiation in the future. I will check back on the patient once the pathology is complete. cc: Shahida Calvo MD
[2018-01-28] MEDS: NEURONTIN PO SCH (22:18)
[2018-01-28] MEDS: FLOMAX PO SCH (22:18)
[2018-01-28] MEDS: PROTONIX IV SCH (22:18)
[2018-01-29] MEDS: ATIVAN IV PRN ×2 (01:15→11:39)
[2018-01-29] MEDS: KEPPRA 500 MG in NS 100 ML IV SCH ×2 (04:35→16:30)
[2018-01-29] MEDS: DECADRON IV SCH ×4 (04:35→21:19)
[2018-01-29] MEDS: HUMULIN R SUBQ SCH ×4 (07:51→21:12)
--- NOTE | 2018-01-29 09:09 | PROGRESS NOTE ---
DATE: 01/29/2018 SUBJECTIVE: Mr. Magdaleno was comfortable. He understands he is going to go for radiation therapy today. OBJECTIVE: Vitals: Temperature 98.8 degrees, pulse 74, respiratory rate 18, blood pressure 138/94. Eyes: Pupils are equal and round. Lungs: Clear in all lung [place]. Cardiovascular: Regular rhythm and rate without murmur or S3. Abdomen: Soft. Skin: Warm and dry. URINE OUTPUT: 5100 mL. BLOOD SUGAR: 130, 131, 115. ASSESSMENT AND PLAN: 1. General weakness and falls secondary to malignancy, brain metastasis, suspect lungs primary. Multiple bilateral brain metastases. He is going to go for radiation therapy today. 2. Large right upper lobe mass, severe right hilar mediastinal lymphadenopathy highly suggesting malignancy. Biopsies have been obtained. Waiting on pathology. 3. Suspect underlying COPD. 4. Constipation. Continue bowel regimen. 5. Bilateral adrenal masses suspicious for malignancy. 6. Thickened bladder wall. Enlarged prostate due to benign prostatic hypertrophy. The patient is on tamsulosin. 7. Chronic volume depletion, which is improved. 8. History of alcohol abuse. Seems to be doing fairly well. Watching for signs of withdrawal. 9. Cognitive decline secondary to metabolic metastasis and possible contribution to the alcohol withdrawal. So will plan on radiation therapy today. 10. He is on levetiracetam 500 mg IV q.12, he is on dexamethasone 4 mg IV q.6 hours, Flomax 0.4 mg a day, Neurontin 100 mg at bedtime, multivitamin 1 a day, Protonix 40 mg daily, MiraLAX 17 g daily, ceftriaxone 1 g q.24 hours, thiamine 100 mg p.o. daily. cc: Nirav Colby MD
[2018-01-29] MEDS: THERA M PLUS PO SCH (10:15)
[2018-01-29] MEDS: LIBRIUM PO SCH (10:15)
[2018-01-29] MEDS: VITAMIN B-1 PO SCH (10:15)
[2018-01-29] MEDS: MIRALAX PO SCH (10:15)
[2018-01-29] MEDS: ROCEPHIN 1 GM in NS 50 ML IV SCH (11:25)
[2018-01-29] MEDS: FLOMAX PO SCH (21:19)
[2018-01-29] MEDS: PROTONIX IV SCH (21:19)
[2018-01-29] MEDS: NEURONTIN PO SCH (21:19)
[2018-01-29] MEDS: NS 1,000 ML IV SCH (21:19)
[2018-01-30] MEDS: KEPPRA 500 MG in NS 100 ML IV SCH ×2 (03:24→16:23)
[2018-01-30] MEDS: DECADRON IV SCH ×5 (03:36→21:18)
[2018-01-30] MEDS: NS 1,000 ML IV SCH ×2 (05:07→21:58)
[2018-01-30] MEDS: HUMULIN R SUBQ SCH ×4 (07:01→21:22)
[2018-01-30] MEDS: MIRALAX PO SCH (08:01)
[2018-01-30] MEDS: LIBRIUM PO SCH (08:01)
[2018-01-30] MEDS: THERA M PLUS PO SCH (08:01)
[2018-01-30] MEDS: VITAMIN B-1 PO SCH (08:01)
--- NOTE | 2018-01-30 09:59 | PROGRESS NOTE ---
DATE: 01/30/2018 SUBJECTIVE: He appears comfortable, and he appears aware of self and his surroundings. No complaints of pain. OBJECTIVE: Temperature 97.8, pulse 67, respirations 16, blood pressure 136/86. Pupils are equal. No distended neck veins. Lungs are clear anterolateral. Cardiovascular: Regular rhythm and rate without murmur or S3. Urine output was 1800 mL. Blood sugars in the low 100s. ASSESSMENT AND PLAN: 1. General weakness and fall secondary to malignancy, brain metastasis. 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 Radiation treatment to his brain would probably, at best, be temporary, and family does not want treatment, so we will not pursue radiation treatment. 2. He has a large right upper lobe mass and, as I said, biopsy. He has right hilar mediastinal lymphadenopathy and biopsy revealed small-cell, so, he has stage IV small cell lung cancer. Prognosis very poor. 3. Suspect underlying chronic obstructive pulmonary disease. 4. Constipation. Continue his bowel regimen. 5. Bilateral adrenal masses suspicious also for malignancy metastasis consistent with stage IV small-cell. 6. Thickened bladder wall. He has benign prostatic hypertrophy. 7. Volume depletion which has improved. 8. History of alcohol abuse. He is doing fairly well. We have watched for some signs of withdrawal, but he should be through that now. 9. Cognitive decline secondary to metabolic changes and also brain metastasis. He is on prophylactically, and he is on Decadron which we will switch to p.o. We are looking for placement options at this time. He will need total care, and we want to pursue hospice. cc: Nirav Colby MD [facility]
[2018-01-30] MEDS: ROCEPHIN 1 GM in NS 50 ML IV SCH (10:46)
[2018-01-30] MEDS: ATIVAN IV PRN ×2 (12:07→21:12)
[2018-01-30] MEDS: PROTONIX IV SCH (21:14)
[2018-01-30] MEDS: NEURONTIN PO SCH (21:18)
[2018-01-30] MEDS: FLOMAX PO SCH (21:18)
[2018-01-30] MEDS: TYLENOL PO PRN (21:18)
[2018-01-31] MEDS: KEPPRA 500 MG in NS 100 ML IV SCH ×2 (04:20→15:46)
[2018-01-31] MEDS: DECADRON IV SCH ×4 (04:21→22:17)
[2018-01-31] MEDS: HUMULIN R SUBQ SCH ×4 (07:56→21:39)
--- NOTE | 2018-01-31 10:21 | PROGRESS NOTE ---
DATE: 01/31/2018 SUBJECTIVE: Stays pretty lethargic. His breakfast tray was there. He is eating a little bit according to report. He remains afebrile. I think he is aware of person and at times aware of his surroundings. OBJECTIVE: Vital Signs: Pulse 74, respirations 16, blood pressure 126/84. Lungs: Are clear anterior lateral. Cardiovascular: Regular rhythm and rate without murmur or S3. Abdomen: Soft. Skin: Warm, dry. LABS: Urine output is 2100 mL. Blood sugar 131, 124, 112. ASSESSMENT AND PLAN: 1. Stage IV small cell lung cancer with metastasis to his head. I think he is slowly becoming more obtunded. He is on Decadron and we are looking for placement options with hospice. We also have him on Keppra for seizure prophylaxis. 2. History of chronic obstructive pulmonary disease. 3. Constipation. Continue bowel regimen. 4. Bilateral adrenal masses suspicious for stage IV small-cell cancer. 5. Thickened gallbladder wall. 6. Benign prostatic hypertrophy. 7. History of alcohol abuse. So, continue present orders and are looking for placement with hospice. Have not discovered any sign of infection. We will continue present antibiotic. cc: Nirav Colby MD
[2018-01-31] MEDS: LIBRIUM PO SCH (10:26)
[2018-01-31] MEDS: VITAMIN B-1 PO SCH (10:27)
[2018-01-31] MEDS: THERA M PLUS PO SCH (10:27)
[2018-01-31] MEDS: MIRALAX PO SCH (10:27)
[2018-01-31] MEDS: ROCEPHIN 1 GM in NS 50 ML IV SCH (10:33)
[2018-01-31] MEDS: ATIVAN IV PRN ×3 (11:56→18:44)
[2018-01-31] MEDS: NS 1,000 ML IV SCH (15:52)
[2018-01-31] MEDS: PROTONIX IV SCH (22:17)
[2018-01-31] MEDS: NEURONTIN PO SCH (22:21)
[2018-01-31] MEDS: FLOMAX PO SCH (22:21)
[2018-01-31] MEDS: ULTRAM PO PRN (22:21)
[2018-02-01] MEDS: KEPPRA 500 MG in NS 100 ML IV SCH ×2 (04:18→15:48)
[2018-02-01] MEDS: DECADRON IV SCH ×5 (04:19→22:55)
[2018-02-01] MEDS: HUMULIN R SUBQ SCH ×4 (06:30→22:54)
[2018-02-01] MEDS: THERA M PLUS PO SCH (09:17)
[2018-02-01] MEDS: LIBRIUM PO SCH (09:18)
[2018-02-01] MEDS: VITAMIN B-1 PO SCH (09:18)
[2018-02-01] MEDS: MIRALAX PO SCH (09:18)
[2018-02-01] MEDS: ROCEPHIN 1 GM in NS 50 ML IV SCH (11:10)
[2018-02-01] MEDS: NS 1,000 ML IV SCH (11:12)
--- NOTE | 2018-02-01 12:40 | PROGRESS NOTE ---
DATE: 02/01/2018 SUBJECTIVE: Mr. Magdaleno is awake. He looks comfortable, breathing comfortably. More alert than yesterday morning. He has not had any trouble swallowing; apparently he is eating pretty well. His bowels have not moved in a couple days, and so he is getting MiraLAX, but does not appear to be uncomfortable. OBJECTIVE: Vital Signs: Temperature 97.8 degrees, pulse 74, respirations 16, blood pressure 133/55. Eyes: Pupils are equal and round. Lungs: Clear in all lung [place]. Cardiovascular exam: Regular rhythm and rate without murmur or S3. Abdomen: Soft. Skin: Warm and dry. : Urine output is 3300 mL. LABS: No recent lab. Blood sugars 113, 122, 104 and 135. ASSESSMENT AND PLAN: 1. Stage IV small cell lung cancer metastasis to his head and suspect metastasis to the adrenals as well. He is on Decadron. Plan is to go to hospice. They are trying to get a custodial closer to family in [place], I believe. He is on Keppra for prophylaxis for seizures. 2. History of chronic obstructive pulmonary disease. 3. Constipation. Getting MiraLAX. 4. Noted to have a benign prostatic hypertrophy. 5. History of alcohol abuse. We should be past any point of withdrawals at this point. So, continue comfort measures. Plan is to go to hospice. cc: Nirav Colby MD
[2018-02-01] MEDS: PROTONIX IV SCH (20:08)
[2018-02-01] MEDS: ATIVAN IV PRN (20:09)
[2018-02-01] MEDS: FLOMAX PO SCH (20:09)
[2018-02-01] MEDS: ULTRAM PO PRN (20:09)
[2018-02-01] MEDS: NEURONTIN PO SCH (20:09)
[2018-02-02] MEDS: ULTRAM PO PRN ×3 (03:55→21:39)
[2018-02-02] MEDS: KEPPRA 500 MG in NS 100 ML IV SCH ×2 (03:55→16:19)
[2018-02-02] MEDS: DECADRON IV SCH ×5 (03:55→22:52)
[2018-02-02] MEDS: HUMULIN R SUBQ SCH ×4 (06:25→21:27)
[2018-02-02] MEDS: THERA M PLUS PO SCH (09:00)
[2018-02-02] MEDS: VITAMIN B-1 PO SCH (09:00)
[2018-02-02] MEDS: MIRALAX PO SCH (09:01)
[2018-02-02] MEDS: LIBRIUM PO SCH (09:06)
[2018-02-02] MEDS: NS 1,000 ML IV SCH (09:06)
[2018-02-02] MEDS: ROCEPHIN 1 GM in NS 50 ML IV SCH (12:01)
--- NOTE | 2018-02-02 13:55 | PROGRESS NOTE ---
DATE: 02/02/2018 SUBJECTIVE: Mr. Magdaleno is awake, comfortable. He is eating a little bit. He says his bowels are okay. OBJECTIVE: Vitals: Temperature 98.1 degrees, pulse 72, respirations 20, blood pressure 135/85. Eyes: Pupils are equal and round. Lungs: Clear in all lung [place]. Cardiovascular: Regular rhythm and rate without murmur or S3. Abdomen: Soft. Skin: Warm and dry. LABORATORY: Blood sugar is 127, 109, 121. ASSESSMENT: 1. Stage IV small cell lung cancer, metastasis to the head. Suspect metastasis to the adrenals. He is on Decadron. Hoping to get into hospice at a detention closer to his family. 2. History of COPD. Respiratory status is stable at this time. 3. Constipation. He is on MiraLAX. 4. He has a history of benign prostatic hypertrophy. 5. History of alcohol abuse. PLAN: Continue present comfort measures and we are still trying to pursue placement with hospice. cc: Nirav Colby MD
[2018-02-02] MEDS: FLOMAX PO SCH (21:26)
[2018-02-02] MEDS: NEURONTIN PO SCH (21:26)
[2018-02-02] MEDS: PROTONIX IV SCH (21:27)
[2018-02-02] MEDS: ATIVAN IV PRN (21:40)
[2018-02-03] MEDS: ATIVAN IV PRN ×3 (02:33→15:08)
[2018-02-03] MEDS: KEPPRA 500 MG in NS 100 ML IV SCH ×2 (04:11→17:05)
[2018-02-03] MEDS: DECADRON IV SCH ×4 (04:11→23:22)
[2018-02-03] MEDS: HUMULIN R SUBQ SCH ×4 (06:55→21:23)
[2018-02-03] MEDS: LIBRIUM PO SCH (09:27)
[2018-02-03] MEDS: VITAMIN B-1 PO SCH (09:28)
[2018-02-03] MEDS: THERA M PLUS PO SCH (09:28)
[2018-02-03] MEDS: MIRALAX PO SCH (09:30)
[2018-02-03] MEDS: ROCEPHIN 1 GM in NS 50 ML IV SCH (12:18)
--- NOTE | 2018-02-03 13:36 | PROGRESS NOTE ---
DATE: 02/03/2018 SUBJECTIVE: Mr. Magdaleno is awake and alert. His bowels are moving. He is eating pretty good. He ate most of his breakfast. OBJECTIVE: Vital Signs: Temperature 97.6 degrees, pulse 77, respirations 14, blood pressure 148/96. Urine output 1400 mL. HEENT: Pupils are equal and round. Lungs: Clear in all lung [place]. Cardiovascular: Regular rhythm and rate without murmur or S3. Abdomen: Soft. Skin: Warm and dry. LABORATORY DATA: Blood sugars 123, 100, 110. ASSESSMENT AND PLAN: 1. Stage IV small-cell lung cancer with metastasis to his brain and to the adrenals. Pursuing comfort care. Continue his Decadron. He looks fairly stable. His family has requested to make him a No Code Level 1. 2. Chronic obstructive pulmonary disease. Aware. His respiratory status looks good at this time. 3. Constipation. Continues his bowel regimen of MiraLAX. 4. History of benign prostatic hypertrophy. 5. History of alcohol abuse. 6. It appears he has diabetes mellitus and this may be because he is on Decadron, but his sugars seem to be well controlled without medication. cc: Nirav Colby MD
[2018-02-03] MEDS: NS 1,000 ML IV SCH (15:11)
[2018-02-03] MEDS: NEURONTIN PO SCH (23:22)
[2018-02-03] MEDS: PROTONIX IV SCH (23:22)
[2018-02-03] MEDS: FLOMAX PO SCH (23:22)
[2018-02-04] MEDS: KEPPRA 500 MG in NS 100 ML IV SCH ×2 (04:15→17:11)
[2018-02-04] MEDS: DECADRON IV SCH ×4 (04:15→22:02)
[2018-02-04] MEDS: ULTRAM PO PRN ×2 (04:30→11:40)
[2018-02-04] MEDS: HUMULIN R SUBQ SCH ×4 (06:37→22:01)
[2018-02-04] MEDS: ATIVAN IV PRN ×2 (09:59→15:18)
[2018-02-04] MEDS: VITAMIN B-1 PO SCH (10:01)
[2018-02-04] MEDS: THERA M PLUS PO SCH (10:01)
[2018-02-04] MEDS: MIRALAX PO SCH (10:01)
[2018-02-04] MEDS: LIBRIUM PO SCH (10:01)
[2018-02-04] MEDS: ROCEPHIN 1 GM in NS 50 ML IV SCH (11:40)
[2018-02-04] MEDS: NS 1,000 ML IV SCH (11:44)
[2018-02-04] MEDS: MORPHINE IV PRN (17:06)
--- NOTE | 2018-02-04 17:45 | PROGRESS NOTE ---
DATE: 02/04/2018 SUBJECTIVE: This patient is lying in bed. He is complaining of generalized pain. He has been placed on Tramadol, but I do believe he needs to be on at least 1 mg of morphine as needed. I will try to get the family and talk to them to see if this patient is going to be on comfort measures only or if they want to go ahead and treat this patient completely. He is DNR level 1 already. He has been confused on and off. OBJECTIVE: Vital Signs: Temperature 97.5, pulse 80, respiratory rate 14, blood pressure 138/90, oxygen saturation 92 on room air. HEENT: Head: Normocephalic, no trauma. PERRLA. Neck: Supple. No JVD. Central trachea. Abdomen: Soft. But some discomfort to palpation, which is generalized. Extremities: No edema. No clubbing. No cyanosis. Neurological: The patient is alert. He is oriented x2, but he has been confused on and off. He moves all 4 extremities spontaneously. I am not quite sure if he has some focal weakness. LABORATORY: Glucose 99. ASSESSMENT AND PLAN: 1. Stage IV small cell lung cancer with metastasis to brain and adrenals. 2. Chronic obstructive pulmonary disease, not in exacerbation. 3. Constipation. 4. History of benign prostatic hypertrophy. 5. History of alcohol abuse. 6. Hyperglycemia with questionable type 2 diabetes versus steroid induced. PLAN: For now, we will continue with the same management. I will add morphine to his medications. Continue with MiraLAX and oxygen. He has been placed on Librium because of his history of alcohol abuse. Also thiamine and multivitamin. Overall, his prognosis is extremely poor. I will try to get the family and probably palliative care to see if we can send this patient home with hospice or have a plan. cc: Ralf Beltran MD
[2018-02-04] MEDS: FLOMAX PO SCH (22:01)
[2018-02-04] MEDS: NEURONTIN PO SCH (22:01)
[2018-02-04] MEDS: PROTONIX IV SCH (22:02)
[2018-02-05] MEDS: KEPPRA 500 MG in NS 100 ML IV SCH ×2 (03:40→17:25)
[2018-02-05] MEDS: DECADRON IV SCH ×4 (03:40→22:17)
[2018-02-05] MEDS: NS 1,000 ML IV SCH (03:40)
[2018-02-05] MEDS: HUMULIN R SUBQ SCH ×3 (06:18→21:11)
[2018-02-05] MEDS: MORPHINE IV PRN ×2 (10:42→15:47)
[2018-02-05] MEDS: MIRALAX PO SCH (10:43)
[2018-02-05] MEDS: LIBRIUM PO SCH (10:44)
[2018-02-05] MEDS: THERA M PLUS PO SCH (10:47)
[2018-02-05] MEDS: VITAMIN B-1 PO SCH (10:47)
--- NOTE | 2018-02-05 13:00 | PROGRESS NOTE ---
DATE: 02/05/2018 SUBJECTIVE: This patient is lying in bed. He is complaining of generalized pain, mostly head and face. I will stop some of his medications and I will put him on other medications so he can be more comfortable. Palliative care team has been talking several times with the family and they agreed with keeping this patient in the hospital for now and comfortable. He has been confused on and off. OBJECTIVE: Vital Signs: Temperature 98 degrees, pulse 64, respiratory rate 14, blood pressure 121/89, oxygen saturation 97% on room air. HEENT: Head normocephalic. No trauma. PERRLA. Neck: Supple. No JVD. No masses. Central trachea. Abdomen: Soft. Some discomfort to palpation, which is generalized. No signs of peritoneal irritation. Extremities: No edema. No clubbing. No cyanosis. Neurological: This patient is alert. He is oriented x2. He has been more confused on and off. He moves all 4 extremities. LABORATORY DATA: Glucose 142. ASSESSMENT AND PLAN: 1. Stage IV small lung cancer with metastasis to brain and adrenals. 2. Chronic obstructive pulmonary disease, not in exacerbation. 3. Constipation. 4. History of benign prostatic hyperplasia. 5. History of alcohol abuse. 6. Hyperglycemia with questionable type 2 diabetes versus steroid-induced hyperglycemia. PLAN: For now, will continue taking care of this patient in the hospital. He has been placed on morphine and Ativan as needed. Will continue with oxygen and MiraLAX, low-dose Librium and steroids. I will stop the rest of the medications. Overall, his prognosis is extremely poor due to his metastatic cancer. Palliative care team taking care of this patient and they have been talking to the family, which agreed with keeping this patient more comfortable. cc: Ralf Beltran MD
[2018-02-05] MEDS: ATIVAN IV PRN (15:50)
[2018-02-06] MEDS: NS 1,000 ML IV SCH ×2 (02:35→18:12)
[2018-02-06] MEDS: KEPPRA 500 MG in NS 100 ML IV SCH ×2 (03:46→18:36)
[2018-02-06] MEDS: DECADRON IV SCH ×4 (03:46→21:43)
[2018-02-06] MEDS: HUMULIN R SUBQ SCH ×4 (06:30→21:43)
[2018-02-06] MEDS: MIRALAX PO SCH (10:44)
[2018-02-06] MEDS: LIBRIUM PO SCH (10:47)
--- NOTE | 2018-02-06 19:04 | PROGRESS NOTE ---
DATE: 02/06/2018 SUBJECTIVE: This patient is lying in bed. He states that the pain is better controlled. He is still having headache. I will continue with the same management. Today, at this moment, he is alert and oriented x3. He has a rash that did not notice before on his right butt ,small around 2 to 3 cm long, but it looks like shingles but is not painful so I will keep an eye on that. OBJECTIVE: Temperature 98.7 degrees, pulse 63, respiratory rate 22, blood pressure 116/63, and oxygen saturation 94% on room air.HEENT: Head normocephalic. No trauma. PERRLA. Neck: Supple. No JVD. No masses. Central trachea. Chest: Clear to auscultation. There is some crepitus bilaterally. Abdomen: Soft. Mild discomfort to palpation which is generalized. No signs of peritoneal irritation. Extremities: No edema. No clubbing. No cyanosis. Neurological: The patient is alert. He is oriented x3. He has been confused on and off, but he moves all 4 extremities. ASSESSMENT AND PLAN: 1. 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 2. Chronic obstructive pulmonary disease, not in exacerbation. 3. Constipation. 4. History of benign prostatic. 5. History of alcohol abuse. 6. Hyperglycemia with questionable type 2 diabetes versus steroid induced hyperglycemia. 7. Right buttock rash. PLAN: 1. Continue with the same management. 2. He has been placed on morphine and Ativan as needed. 3. Continue with oxygen and MiraLAX. 4. Low dose of Librium and steroids. 5. His prognosis is extremely poor due to his metastatic cancer. 6. Palliative care team taking care of this patient. They have been talking to the family, which agreed with keeping this patient more comfortable. He is DNR level 1. He is a hospice candidate. cc: Ralf Beltran MD
[2018-02-07] MEDS: KEPPRA 500 MG in NS 100 ML IV SCH ×2 (04:24→16:50)
[2018-02-07] MEDS: DECADRON IV SCH ×4 (04:24→21:05)
[2018-02-07] MEDS: HUMULIN R SUBQ SCH ×4 (06:39→21:05)
[2018-02-07] MEDS: MIRALAX PO SCH (08:30)
[2018-02-07] MEDS: LIBRIUM PO SCH (08:30)
[2018-02-07] MEDS: NS 1,000 ML IV SCH ×2 (08:31→16:50)
--- NOTE | 2018-02-07 16:28 | PROGRESS NOTE ---
DATE: 02/07/2018 SUBJECTIVE: Patient is lying comfortably in bed. His pain has been controlled. He is still having some headache. We will continue with the same management. No acute events overnight. OBJECTIVE: Vital Signs: Temperature 98.1, pulse 60 respiratory rate 18, blood pressure 121/86, oxygen saturation 99% on room air. HEENT: Head normocephalic. No trauma. PERRLA. Neck: Supple. No JVD. No masses. Central trachea. Chest: Some crepitus bilaterally, mostly at the bases. Abdomen: Soft. Mild discomfort to palpation at the level of the periumbilical area. No signs of peritoneal irritation. Extremities: No edema. No clubbing. No cyanosis. Neurologic: The patient is alert, a little bit sleepy, oriented x 3. He has been confused on and off, but he moves all 4 extremities. ASSESSMENT AND PLAN: 1. End stage IV small lung cell cancer with metastasis to brain and adrenals. 2. Chronic obstructive pulmonary disease, not in exacerbation. 3. Constipation. 4. History of benign prostatic hyperplasia. 5. History of alcohol abuse. 6. Hyperglycemia, with questionable type 2 diabetes versus steroid-induced hyperglycemia. 7. Right buttock rash. PLAN: Continue with the same management. He has been placed on morphine and Ativan as needed. Continue with oxygen and MiraLAX, low dose of Librium and steroids. Prognosis is extremely poor due to his metastatic disease. Palliative care team taking care of this patient. They have been talking to the family which I agreed with keeping this patient comfortable. He is DNR level 1 and he is a hospice candidate. We do not have placement for this patient at this moment. cc: Ralf Beltran MD
[2018-02-08] MEDS: NS 1,000 ML IV SCH ×2 (02:30→11:32)
[2018-02-08] MEDS: KEPPRA 500 MG in NS 100 ML IV SCH ×2 (04:14→17:49)
[2018-02-08] MEDS: DECADRON IV SCH ×4 (04:15→22:05)
[2018-02-08] MEDS: HUMULIN R SUBQ SCH ×4 (06:04→21:52)
[2018-02-08] MEDS: MIRALAX PO SCH (10:02)
[2018-02-08] MEDS: LIBRIUM PO SCH (10:03)
--- NOTE | 2018-02-08 14:36 | PROGRESS NOTE ---
DATE: 02/08/2018 SUBJECTIVE: The patient has no focal complaints. OBJECTIVE: Vital Signs: Blood pressure is 139/85, heart rate of 51, respiratory 16, satting 97% on room air. Cardiovascular: Regular rate and rhythm. Pulmonary: Bilateral breath sounds. Clear to auscultation. GI: Soft, nontender, nondistended. Bowel sounds are positive. Skin exam: He does have some breakdown of skin near the intergluteal fold. There could be some early vesicular lesions. The area is damp because he had urinated, so it is unclear. It does not classically look like herpetic rash, but it is only on one side and may be an early herpetic rash. We will test rapid PCR if we can and treat accordingly. LABORATORY DATA: Just have blood sugars. PROBLEM LIST: 1. Stage IV small-cell lung cancer with metastases to brain and adrenals. We will continue treatment and follow. Prognosis is poor. I do not know if hospice has been consulted, but may want to go ahead and get them involved. 2. Diabetes. He is on sliding scale insulin. We will continue to follow closely. 3. Alcohol abuse, stable currently. DISPOSITION: Pending his clinical status. I think we are looking for placement because there will be nobody to take care of him long-term. We will continue to follow closely. cc: Solo Thomas MD
[2018-02-09] MEDS: NS 1,000 ML IV SCH ×3 (03:56→22:16)
[2018-02-09] MEDS: KEPPRA 500 MG in NS 100 ML IV SCH ×2 (04:32→17:46)
[2018-02-09] MEDS: DECADRON IV SCH ×4 (04:33→22:13)
[2018-02-09] MEDS: HUMULIN R SUBQ SCH (06:28)
[2018-02-09 07:29] LABS: HEMATOCRIT 40.3 % (42.0-52.0); HEMOGLOBIN 13.5 g/dL (14.0-18.0); IMM GRAN# 0.05 X1000 (0.0-0.04); IMM GRAN% 0.4 % (0.0-0.5); LYMPH# 0.62 X1000 (1.2-3.4); LYMPH% 4.4 % (20.5-51.1); MCH 22.5 PG (27-31); MCHC 33.5 g/dL (33-37); MCV 67.3 FL (81-99); MONO# 0.96 X1000 (0.11-0.59); MONO% 6.7 % (1.7-9.3); MPV 10.5 FL (7.4-10.4); NEUT% 88.5 % (42.2-75.2); PLT 188 X1000 (130-400); RBC 5.99 XMIL (4.7-6.1); WBC 14.23 X1000 (4.8-10.8)
[2018-02-09 07:50] LABS: AGAP 8; BUN 18 mg/dL (8-22); CALCIUM 8.1 mg/dL (8.8-10.2); CHLORIDE 99 mmol/L (98-107); COSMO 276; CREATININE 0.5 mg/dL (0.7-1.2); ESTIMATED GFR > 60; GLUCOSE 95 mg/dL (70-104); POTASSIUM 4.2 mmol/L (3.5-5.1); SODIUM 137 mmol/L (136-145); TCO2 30 mmol/L (25-35)
[2018-02-09] MEDS: MIRALAX PO SCH (09:19)
[2018-02-09] MEDS: MORPHINE IV PRN ×3 (09:20→19:19)
[2018-02-09] MEDS: LIBRIUM PO SCH (09:20)
--- NOTE | 2018-02-09 12:14 | PROGRESS NOTE ---
DATE: 02/09/2018 SUBJECTIVE: This patient is lying in bed. He is complaining of generalized pain, mostly his head. He is oriented x3. Continue with the same management. OBJECTIVE: Vital Signs: Temperature 98.1 degrees, pulse 56, respiratory rate 15, blood pressure 137/89. Oxygen saturation 93% on room air. HEENT: Head normocephalic. No trauma. PERRLA. Neck: Supple. No JVD. No masses. Central trachea. Chest: Crepitus bilaterally. Mostly at the bases. Abdomen: Soft. Mild tenderness to palpation at the level of the periumbilical area. No signs of peritoneal irritation. Extremities: No edema. No clubbing. No cyanosis. Neurological: Alert and oriented x3, he is a little bit sleepy but arousable. He is not confused at this point, at this moment. LABORATORY: WBC 14.2, hemoglobin 13.5, hematocrit 40, platelet 188,000. Sodium 137, potassium 4.2, chloride 99, bicarbonate 30, BUN 18, creatinine 0.5, glucose 95, calcium 8.1. ASSESSMENT AND PLAN: 1. End-stage small lung cancer with metastasis to brain and adrenals. 2. Chronic obstructive pulmonary disease, not in exacerbation. 3. Constipation. 4. History of benign prostatic hyperplasia. 5. History of alcohol abuse. 6. Hyperglycemia with questionable type 2 diabetes versus steroid-induced hyperglycemia. 7. Right buttock rash, uncertain etiology. PLAN: Continue with same management. He has been placed on morphine and Ativan as needed. Continue with oxygen and MiraLAX, low dose of Librium and steroids. Prognosis is extremely poor due to his metastatic disease. Palliative Care Team taking care of this patient and they have been talking to the family, which agreed to keep the patient comfortable. He is Do Not Resuscitate Level 1 and he is a hospice candidate. We do not have placement for this patient at this moment. cc: Ralf Beltran MD
[2018-02-10] MEDS: KEPPRA 500 MG in NS 100 ML IV SCH ×2 (03:22→15:42)
[2018-02-10] MEDS: DECADRON IV SCH ×4 (03:25→22:50)
[2018-02-10] MEDS: LIBRIUM PO SCH (09:13)
[2018-02-10] MEDS: MIRALAX PO SCH (09:13)
--- NOTE | 2018-02-10 10:05 | PROGRESS NOTE ---
DATE: 02/10/2018 SUBJECTIVE: This patient is lying in bed. He is complaining of generalized weakness and generalized pain. He is oriented x3. For now, we will continue with the same management. OBJECTIVE: Vital Signs: Temperature 97.4 degrees, pulse 58, respiratory rate 20, blood pressure 113/82, oxygen saturation 93% on room air. HEENT: Head normocephalic. No trauma. PERRLA. Neck: Supple. No JVD. No masses. Central trachea. Chest: Crepitus bilaterally, mostly at the bases. Abdomen: Soft. Mild tenderness to palpation at the level of the periumbilical area. No signs of peritoneal irritation. Extremities: No edema. No clubbing. No cyanosis. Neurological: The patient is alert. He is a bit sleepy today, oriented x3. He is not confused right now. LABORATORY DATA: WBC 14.2, hemoglobin 13.5, hematocrit 40.3, platelets 188,000. Sodium 137, potassium 4.2, chloride 99, bicarbonate 30, BUN 18, creatinine 0.5, glucose 95, calcium 8.1. This lab work was done yesterday, but since this patient is on comfort measures only, we have stopped any kind of blood work from now on. ASSESSMENT: 1. End-stage small lung cancer with metastases to brain and adrenals. 2. Chronic obstructive pulmonary disease, not in exacerbation. 3. Constipation. 4. History of benign prostatic hyperplasia. 5. History of alcohol abuse. 6. Hyperglycemia with questionable type 2 diabetes versus steroid-induced hyperglycemia. 7. Right buttock rash, uncertain etiology. PLAN: Continue with the same management. He has been placed on morphine and Ativan as needed. Continue with oxygen and MiraLAX, low dose of Librium, and steroids. The prognosis is extremely poor due to his metastatic disease. Palliative care team taking care of this patient and they have been talking to the family, which agreed to keep this patient comfortable. He is DNR level 1 and he is a candidate for hospice. We do not have placement for this patient, though, at this moment. cc: Ralf Beltran MD
[2018-02-10] MEDS: NS 1,000 ML IV SCH (15:43)
[2018-02-11] MEDS: DECADRON IV SCH ×4 (04:17→22:57)
[2018-02-11] MEDS: KEPPRA 500 MG in NS 100 ML IV SCH ×2 (04:17→15:53)
[2018-02-11] MEDS: MIRALAX PO SCH (08:24)
[2018-02-11] MEDS: NS 1,000 ML IV SCH (10:23)
[2018-02-11] MEDS: LIBRIUM PO SCH (10:23)
--- NOTE | 2018-02-11 15:00 | PROGRESS NOTE ---
DATE: 02/11/2018 SUBJECTIVE: Patient reports still in pain. Patient also complains of general weakness. OBJECTIVE: Vital Signs: Temperature 97.1 degrees, heart rate 88, respiratory rate 20, blood pressure 117/77, O2 saturation 95% on room air. General: This is a chronically ill-looking 62- year-old male, lying in bed, in no acute distress. Cardiovascular: S1, S2 heard. No murmurs, gallops, or rubs. Regular rate and rhythm. Respiratory: There are some crackles in both pulmonary bases. Patient not using any accessory muscles. No work of breathing noted. Abdomen: Soft, moderate tenderness to palpation in the periumbilical area. No signs of peritoneal irritation. Extremities: No clubbing, cyanosis, or edema. Peripheral pulses present in both legs. Neurological: Patient alert and oriented x3. Moves 4 extremities. LABORATORY DATA: None. ASSESSMENT AND PLAN: 1. End-stage small lung cancer with metastasis to brain and renals. 2. Chronic obstructive pulmonary disease, not in exacerbation. 3. Constipation. 4. History of benign prostatic hyperplasia. 5. History of alcohol abuse. 6. Hyperglycemia. 7. Right buttock rash. Patient is extremely poor due to this metastatic disease. Patient is on comfort care measures only. The patient is DNR level 1. Patient requests to have increasing doses of pain medication. We are going to do that. The patient is a candidate for hospice. At this point, we will continue with the same management. cc: Lino Allison MD
[2018-02-11] MEDS: MORPHINE IV PRN ×2 (15:32→23:02)
[2018-02-12] MEDS: NS 1,000 ML IV SCH (06:54)
[2018-02-12] MEDS: KEPPRA 500 MG in NS 100 ML IV SCH ×2 (06:55→15:55)
[2018-02-12] MEDS: DECADRON IV SCH ×4 (06:59→22:53)
[2018-02-12] MEDS: LIBRIUM PO SCH (11:03)
[2018-02-12] MEDS: MIRALAX PO SCH (11:04)
[2018-02-12] MEDS: MORPHINE IV PRN (17:51)
[2018-02-13] MEDS: MORPHINE IV PRN (03:05)
[2018-02-13] MEDS: DECADRON IV SCH ×6 (03:05→23:06)
[2018-02-13] MEDS: KEPPRA 500 MG in NS 100 ML IV SCH ×2 (03:06→17:00)
[2018-02-13] MEDS: NS 1,000 ML IV SCH (03:14)
--- NOTE | 2018-02-13 04:12 | PROGRESS NOTE ---
DATE: 02/12/2018 SUBJECTIVE: The patient continues to report being in pain, yesterday he was receiving 1 mg of morphine q.4 hours p.r.n., but yesterday I changed it from 2 to 10 mg IV q.1 hour if needed. OBJECTIVE: Vital Signs: Temperature 97.8 degrees, heart rate 71, respiratory rate 18, blood pressure 113/76, O2 saturation 92% on room air. General: This is a chronically ill-looking 62- year-old male, lying in bed, in no acute distress. Cardiovascular: S1, S2 heard. No murmurs, gallops, or rubs. Regular rate and rhythm. Respiratory: Some crackles still noted in both pulmonary bases. The patient is not using any accessory muscles or having work of breathing. Abdomen: Soft, nontender to palpation. Bowel sounds present. No organomegaly. Extremities: No clubbing, cyanosis, or edema. Peripheral pulses present in both legs. Neurological: The patient is alert and oriented x3. Moves all 4 extremities. LABORATORY DATA: None. ASSESSMENT AND PLAN: 1. End-stage small cell lung cancer with metastases to the brain and kidneys. 2. Chronic obstructive pulmonary disease, not having any exacerbation. 3. Constipation. 4. History of benign prostatic hyperplasia. 5. History of alcohol abuse. 6. Hyperglycemia. 7. Right buttock rash. PLAN: At this point his prognosis as we mentioned before is extremely poor. We are providing to this patient comfort care measures only. We will continue to monitor this patient closely. We have informed the family, in this case his sister that we have increased the doses of pain medications. We will continue to monitor this patient closely. cc: Lino Allison MD [facility]
[2018-02-13] MEDS: MIRALAX PO SCH (09:34)
[2018-02-13] MEDS: LIBRIUM PO SCH (09:44)
--- NOTE | 2018-02-13 13:59 | PROGRESS NOTE ---
DATE: 02/13/2018 SUBJECTIVE: The patient continues to report being in pain. I do think that this patient is not able to call nurse to get pain medication. OBJECTIVE: Vital Signs: Temperature 98.5 degrees, heart rate 62, respiratory rate 18, blood pressure 128/51, and O2 saturation 98% on room air. General: This is a chronically ill-looking 62-year-old male, lying in bed, in no acute distress. Cardiovascular: S1 and S2 heard. No murmurs, gallops, or rubs. Regular rate and rhythm. Respiratory: Crackles still noted in both pulmonary bases. The patient is not using any accessory muscles or having work of breathing. Abdomen: Soft, nontender to palpation. Bowel sounds present. No organomegaly. Extremities: No clubbing, cyanosis, or edema. Peripheral pulses present in both legs. Neurological: The patient is alert and oriented x3. Moves 4 extremities. LABORATORY DATA: None. ASSESSMENT: 1. End-stage small cell lung cancer with metastasis to the brain and kidneys. 2. Chronic obstructive pulmonary disease, not in any exacerbation. 3. Constipation. 4. History of benign prostatic hyperplasia. 5. History of alcohol abuse. 6. Hyperglycemia. 7. Right buttock rash. PLAN: At this point, I am going to start [place] 5 mg p.o. every 6 hours scheduled because I think he is not able to request for pain medication. We will leave morphine IV just in case he is truly badly hurting on top of the medication for pain that he is already receiving. We will continue to monitor this patient closely. cc: Lino Allison MD
[2018-02-13] MEDS: NORCO-5 PO SCH ×2 (14:05→19:18)
[2018-02-14] MEDS: NORCO-5 PO SCH ×3 (00:44→16:02)
[2018-02-14] MEDS: NS 1,000 ML IV SCH ×2 (02:58→21:09)
[2018-02-14] MEDS: DECADRON IV SCH ×6 (02:59→21:09)
[2018-02-14] MEDS: KEPPRA 500 MG in NS 100 ML IV SCH ×2 (03:01→16:21)
[2018-02-14] MEDS: LIBRIUM PO SCH (10:56)
[2018-02-14] MEDS: MIRALAX PO SCH (10:56)
--- NOTE | 2018-02-14 14:51 | PROGRESS NOTE ---
DATE: 02/14/2018 SUBJECTIVE: Patient unfortunately continues to be in pain. He is not able to point where. He reports some headaches too. OBJECTIVE: Vital Signs: Temperature 97.5 degrees, heart rate 62, respiratory rate 12, blood pressure 130/61, O2 saturation 97% on room air. General: This is a chronically ill-looking, 62- year-old male, lying in bed, in no acute distress. Cardiovascular: S1, S2 heard. No murmurs, gallops, or rubs. Regular rate and rhythm. Respiratory: Some coarse breath sounds in both bases. Patient not using any accessory muscles or having work of breathing. Neurological: Patient is sleepy but moves 4 extremities. ASSESSMENT AND PLAN: 1. End-stage small cell lung cancer with metastasis to the brain and kidneys. 2. Chronic obstructive pulmonary disease, not in any exacerbation. 3. Constipation. 4. History of benign prostatic hyperplasia. 5. History of alcohol abuse. 6. Hyperglycemia. At this point, I am going to increase the doses of pain medications. In this case, [place] 5 to [place] 10 every 6 hours scheduled because the patient is frail and weak that he is not requesting for any pain medication. We will continue to monitor this patient closely. cc: MD HETAL Fajardo
[2018-02-15] MEDS: NORCO-5 PO SCH ×5 (00:49→21:59)
[2018-02-15] MEDS: KEPPRA 500 MG in NS 100 ML IV SCH ×2 (05:03→18:38)
[2018-02-15] MEDS: DECADRON IV SCH ×4 (05:04→21:59)
--- NOTE | 2018-02-15 12:04 | PROGRESS NOTE ---
DATE: 02/15/2018 SUBJECTIVE: Patient reports that he is now comfortable, not complaining of any pain. OBJECTIVE: Vital Signs: Temperature 97.9 degrees, heart rate 60, respiratory rate 18, blood pressure 124/83, O2 saturation 92% on room air. General examination: This is a chronically ill- looking, 62-year-old male, lying in bed in no acute distress. Cardiovascular Exam: S1, S2 heard. No murmurs, gallops, or rubs. Regular rate and rhythm. Respiratory Exam: Coarse breath sounds in both pulmonary bases. Patient not using any accessory muscles or having work of breathing. Neurological Exam: Patient is a little bit more awake, although after I started talking to him, he falls asleep. Moves 4 extremities spontaneously. ASSESSMENT AND PLAN: 1. End-stage small cell lung cancer with metastases to the brain and kidneys. 2. Chronic obstructive pulmonary disease, not in any exacerbation. 3. Constipation. 4. History of benign prostatic hyperplasia. 5. History of alcohol abuse. 6. Hyperglycemia. At this point, considering that he is comfortable now, we are not going to make any changes to his current treatment. We will continue to monitor this patient closely. cc: Lino Allison MD
[2018-02-15] MEDS: MIRALAX PO SCH (12:09)
[2018-02-15] MEDS: LIBRIUM PO SCH (12:09)
[2018-02-15] MEDS: NS 1,000 ML IV SCH (18:39)
[2018-02-16] MEDS: KEPPRA 500 MG in NS 100 ML IV SCH ×2 (04:19→17:14)
[2018-02-16] MEDS: NORCO-5 PO SCH ×4 (04:19→22:02)
[2018-02-16] MEDS: DECADRON IV SCH ×4 (04:19→22:01)
[2018-02-16] MEDS: MIRALAX PO SCH (12:21)
[2018-02-16] MEDS: LIBRIUM PO SCH (12:21)
--- NOTE | 2018-02-16 14:00 | PROGRESS NOTE ---
DATE: 02/16/2018 SUBJECTIVE: Patient reports today he is feeling fine and not complaining. OBJECTIVE: Vitals: Temperature 97.7 degrees, heart rate 61, respiratory rate : 20 blood pressure 127/83, O2 saturation 91% on room air. General: This is a chronically ill- looking 62-year- old male lying in bed in no acute distress. Cardiovascular: S1, S2 heard. No murmurs, gallops, or rubs. Regular rate and rhythm. Respiratory: Breath sounds in both pulmonary [place]. Patient not using any accessory muscles or having work of breathing. Abdomen: Soft, nontender to palpation. Bowel sounds present. No organomegaly. Extremities: No clubbing, cyanosis or edema, peripheral pulses present in both legs. Neurological: Patient alert, oriented x3, moves 4 extremities. ASSESSMENT: 1. End-stage small cell lung cancer with metastases to brain and kidney. 2. Chronic obstructive pulmonary disease. 3. Constipation. 4. Benign prostatic hyperplasia. 5. Alcohol abuse. 6. Hyperglycemia. PLAN: At this time with the current amount of pain medication that he is receiving he reports being stable so at this point will continue with the same management. cc: Lino Allison MD [facility]
[2018-02-16] MEDS: NS 1,000 ML IV SCH (17:14)
[2018-02-17] MEDS: NS 1,000 ML IV SCH ×2 (01:50→06:14)
[2018-02-17] MEDS: KEPPRA 500 MG in NS 100 ML IV SCH ×2 (03:54→17:19)
[2018-02-17] MEDS: NORCO-5 PO SCH ×4 (03:54→22:17)
[2018-02-17] MEDS: DECADRON IV SCH ×4 (03:54→22:17)
[2018-02-17] MEDS: LIBRIUM PO SCH (10:33)
[2018-02-17] MEDS: MIRALAX PO SCH (10:34)
--- NOTE | 2018-02-17 11:56 | PROGRESS NOTE ---
DATE: 02/17/2018 SUBJECTIVE: The patient is sleeping comfortable today. He wakes up and complains as mentioned. OBJECTIVE: Vital Signs: Temperature 97.5 degrees, heart rate 71, respiratory rate 13, blood pressure 132/95, O2 saturation 98% on 2 L nasal cannula. General: This is a chronically ill- looking, 62-year-old male, lying in bed, in no acute distress. Cardiovascular: S1, S2 heard. No murmurs, gallops, or rubs. Regular rate and rhythm. Respiratory: Breath sounds still present in both pulmonary [place]. Patient not using any accessory muscles or having work of breathing. Abdomen: Soft, nontender to palpation. Bowel sounds present. No organomegaly. Extremities: No clubbing, cyanosis, or edema. Peripheral pulses present in both legs. Neurological: Patient is alert and oriented x3. Moves 4 extremities. ASSESSMENT: 1. End-stage small cell lung cancer with metastases to brain and kidney. 2. Chronic obstructive pulmonary disease. 3. Constipation. 4. Benign prostatic hyperplasia. 5. Alcohol abuse. 6. Hyperlipidemia. PLAN: At this time, patient is stable. We will continue with the same amount of pain medications. Unfortunately, there is no place where we can send this patient. At this point, we will continue with same medications. He is on hospice for all the diagnoses mentioned above. We will continue to monitor. cc: Lino Allison MD
[2018-02-18] MEDS: NS 1,000 ML IV SCH (03:52)
[2018-02-18] MEDS: KEPPRA 500 MG in NS 100 ML IV SCH ×2 (03:53→16:05)
[2018-02-18] MEDS: NORCO-5 PO SCH ×4 (03:53→22:04)
[2018-02-18] MEDS: DECADRON IV SCH ×4 (03:54→22:05)
[2018-02-18] MEDS: LIBRIUM PO SCH (09:22)
[2018-02-18] MEDS: MIRALAX PO SCH (09:22)
--- NOTE | 2018-02-18 15:33 | PROGRESS NOTE ---
DATE: 02/18/2018 SUBJECTIVE: The patient is resting in bed. Not in any obvious distress. OBJECTIVE: Vital signs: Vital signs are as follows: Temperature is 97.8 degrees, pulse 63, respirations 16, blood pressure 129/63, oxygenation is 94%. HEENT: Atraumatic, normocephalic. Cardiovascular system: S1, S2. Respiratory system: Has evidence of good air entry bilaterally. Abdomen: Soft, nontender. No masses felt. Extremities: No evidence of edema. Central nervous system: No obvious focal deficits noted. LABS: None. ASSESSMENT: 1. Metastatic lung cancer. 2. Chronic obstructive pulmonary disease. 3. Constipation. 4. Benign prostatic hypertrophy. 5. Alcoholism. 6. Hyperlipidemia. PLAN: Continue current regimen. The patient is currently on the hospice care. cc: Quentin Genao MD
[2018-02-19] MEDS: NORCO-5 PO SCH ×4 (04:24→22:22)
[2018-02-19] MEDS: KEPPRA 500 MG in NS 100 ML IV SCH ×2 (04:27→17:19)
[2018-02-19] MEDS: DECADRON IV SCH ×4 (04:27→22:22)
[2018-02-19] MEDS: NS 1,000 ML IV SCH (05:41)
[2018-02-19] MEDS: MIRALAX PO SCH (09:19)
[2018-02-19] MEDS: LIBRIUM PO SCH (09:20)
--- NOTE | 2018-02-19 16:38 | PROGRESS NOTE ---
DATE: 02/19/2018 INTERVAL HISTORY: Patient on hospice care. Pain control appears to be adequate. The patient remains arousable but only intermittently responsive. He does with repeated prompting answer some questions. He reports adequate pain control. REVIEW OF SYSTEMS: Twelve point review of system negative, except as for interval history. VITAL SIGNS: Temperature 99, pulse 55, respirations 17, blood pressure 122/72, and O2 saturation 91% on room air. LABORATORY DATA: None. IMAGING: None. PHYSICAL EXAMINATION: General: No acute distress. Vital Signs: As above. HEENT: Normocephalic, atraumatic. Moist mucous membranes. No cervical adenopathy. Cardiovascular: Regular rate and rhythm. No murmurs, rubs, or gallops noted. Pulmonary: Clear to auscultation bilaterally. Abdomen: Soft, nontender, and nondistended. Bowel sounds are decreased but present. Extremities: Peripheral pulses are decreased but intact. No clubbing , cyanosis, or edema. Neurologic: Exam limited somewhat by patient's mental status but no obvious focal deficits. Skin: No new rashes or lesions noted. ASSESSMENT AND PLAN: 1. Lung cancer metastatic to the brain and kidney. Patient is on hospice. The patient is unable to care for himself and no family or facility currently available. Awaiting placement or . Pain control is adequate so we will continue the current pain medication regimen. 2. Chronic obstructive pulmonary disease, stable. 3. Constipation. 4. Benign prostatic hyperplasia. 5. History of alcohol use. 6. Hyperlipidemia. 7. Discontinued most regular medications given hospice status. Continue to monitor for uncontrolled symptoms and treat accordingly. [facility]
[2018-02-20] MEDS: KEPPRA 500 MG in NS 100 ML IV SCH ×2 (05:48→16:15)
[2018-02-20] MEDS: NORCO-5 PO SCH ×4 (05:48→22:49)
[2018-02-20] MEDS: NS 1,000 ML IV SCH ×2 (05:49→22:50)
[2018-02-20] MEDS: DECADRON IV SCH ×4 (05:49→22:49)
[2018-02-20] MEDS: MIRALAX PO SCH (09:33)
[2018-02-20] MEDS: LIBRIUM PO SCH (09:33)
--- NOTE | 2018-02-20 18:38 | PROGRESS NOTE ---
DATE: 02/20/2018 OVERNIGHT: No acute events. SUBJECTIVE: He is awake, alert, does not appear to be in distress. He denies having any pain. Does not engage in meaningful conversation and follows simple commands. OBJECTIVE: Vital Signs: Temperature of 98.9, pulse 65 per minute, blood pressure of 116/86, saturating 91% on room air. PHYSICAL EXAMINATION: General: Does not appear in acute distress. HEENT: Oral cavity is moist. Lungs: Air entry bilaterally equal. No wheeze, rhonchi, crackles. Cardiovascular: S1, S2 normal. No murmur or gallop. Abdomen: Soft, nontender. No lower extremity edema. LABS: No labs. ASSESSMENT AND PLAN: 1. Metastatic lung cancer with brain metastasis. The patient is on comfort measures only. He is not able to take care of himself at home and there is no family or facility currently available. Continue to address his anxiety and pain with chlordiazepoxide, [place] and morphine. He does not appear to be currently in distress. 2. Other problems: He does have a history of COPD which is stable, not short of breath, constipation, BPH, history of alcohol use, hyperlipidemia. Continue Keppra and decadrone for seizure prophylaxis. cc: Yazan Morris MD [facility]
[2018-02-21] MEDS: NS 1,000 ML IV SCH (05:10)
[2018-02-21] MEDS: KEPPRA 500 MG in NS 100 ML IV SCH ×2 (05:10→16:12)
[2018-02-21] MEDS: DECADRON IV SCH ×4 (05:11→22:26)
[2018-02-21] MEDS: NORCO-5 PO SCH ×4 (05:19→22:26)
[2018-02-21] MEDS: LIBRIUM PO SCH (10:27)
[2018-02-21] MEDS: MIRALAX PO SCH (10:28)
[2018-02-21] MEDS ORDERED: MIRALAX PO PRN (16:47)
--- NOTE | 2018-02-21 18:07 | PROGRESS NOTE ---
DATE: 02/21/2018 OVERNIGHT: No acute events. SUBJECTIVE: He answers simple questions with 1 word. He states he is not in pain and denies any complaints. He states he ate a lot of things in his lunch. OBJECTIVE: Vital Signs: Temperature 97.5 degrees, pulse 62 per minute, blood pressure 109/75, saturating 90% on room air. General: He does not appear in any acute distress. He keeps his eyes open and follows simple commands like giving his hand for pulse check. Affect is flat. HEENT: Pupils bilaterally equal, reactive to light. Dry oral cavity. Lungs: Air entry bilaterally equal. No wheeze or rhonchi. Mild crackles bilateral inframammary region. Abdomen: Scaphoid, soft, nontender. Extremities: No lower extremity edema. LABORATORY DATA: No labs on him. ASSESSMENT AND PLAN: 1. 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 Considering extensive stage metastatic small-cell lung cancer, he has a poor prognosis and he is on comfort measures only. Continue chlordiazepoxide for anxiety. Continue [place] for pain and intravenous morphine for pain. Continue dexamethasone and Keppra to prevent seizures. 2. Other problems. The patient does have a history of chronic obstructive pulmonary disease, does not appear to be in shortness of breath. For his constipation, will give him p.r.n. laxative. 3. Disposition. Unfortunately, the patient does not have insurance and no hospice facility would accept him, and he cannot go on home hospice either, so he will remain inside the hospital for comfort measures only. cc: Yazan Morris MD
[2018-02-21] MEDS ORDERED: CALMOSEPTINE OINTMENT TOP PRN (22:08)
[2018-02-22] MEDS: NORCO-5 PO SCH ×4 (04:36→22:31)
[2018-02-22] MEDS: NS 1,000 ML IV SCH (04:37)
[2018-02-22] MEDS: DECADRON IV SCH ×2 (04:37→11:04)
[2018-02-22] MEDS: KEPPRA 500 MG in NS 100 ML IV SCH (04:43)
[2018-02-22] MEDS: LIBRIUM PO SCH (11:05)
--- NOTE | 2018-02-22 13:27 | PROGRESS NOTE ---
DATE: 02/22/2018 OVERNIGHT: No acute events. SUBJECTIVE: He does not appear to be in any kind of distress. He answers simple questions with yes and no. He has a flat affect. He does not engage in any meaningful conversation at the moment. OBJECTIVE: Vital Signs: He is afebrile with temperature of 97.8 degrees, pulse 60 per minute, blood pressure 130/80, saturating 94% on 2 L nasal cannula. HEENT: On physical examination, oral cavity reveals he has oral thrush. Does not appear in acute distress. No pallor, cyanosis, clubbing, or icterus. He keeps his eyes open, follows simple commands. Pupils equal, reacting to light bilaterally. Dry oral cavity. Lungs: Air entry bilaterally equal. No wheezing, rhonchi, or crackles. Abdomen: Scaphoid, soft, nontender. Extremities: No lower extremity edema. Neurological: Alert. He also had a right-sided squint. Does not appear in acute distress. Office physical examination is limited because of body habitus and inability to follow all the commands. No lab data. ASSESSMENT AND PLAN: 1. Right-sided upper lobe poorly differentiated small cell lung carcinoma, extensive stage, with bilateral adrenal, bilateral cerebral and cerebellar metastases. He has poor prognosis and he is comfort measures only. Continue chlordiazepoxide for anxiety, as-needed lorazepam for anxiety. Continue [place] and intravenous morphine as needed for pain. Continue dexamethasone and Keppra for his brain metastasis to prevent seizures. He does not have insurance and so would not qualify for Hospice Service. 2. Other problems. He has history of chronic obstructive pulmonary disease, but does not appear to be short of breath. Continue as-needed laxative for constipation. 3. Oral thrush. Start patient on statin. 4. Others. I changed the patient's intravenous antibiotics to oral. 5. Disposition: Patient remains on comfort measures only inside the hospital. Plan of care was discussed with the nursing team. cc: Yazan Morris MD
[2018-02-22] MEDS: MYCOSTATIN SUSP PO SCH ×3 (16:58→22:30)
[2018-02-22] MEDS: DECADRON PO SCH (22:30)
[2018-02-22] MEDS: KEPPRA PO SCH (22:31)
[2018-02-23] MEDS: NORCO-5 PO SCH ×4 (05:02→23:19)
[2018-02-23] MEDS: NS 1,000 ML IV SCH (05:02)
[2018-02-23] MEDS: DECADRON PO SCH ×2 (10:51→23:19)
[2018-02-23] MEDS: LIBRIUM PO SCH (10:51)
[2018-02-23] MEDS: KEPPRA PO SCH ×2 (10:52→23:19)
[2018-02-23] MEDS: MYCOSTATIN SUSP PO SCH ×4 (10:52→23:19)
--- NOTE | 2018-02-23 15:52 | PROGRESS NOTE ---
DATE: 02/23/2018 Overnight no acute events. SUBJECTIVE: He was sitting up. He had a plate of lunch in front of him. He is chewing something. It appears that he has not swallowed well and he is coughing a little bit. He answers some questions by yes or no. Appears disinterested though. However, he is awake. OBJECTIVE: Vital signs: Temperature 97 degrees, pulse 94, blood pressure 120/80, saturating 96% on 3 L nasal cannula. General: He has a flat affect. Appears disinterested. Not in any acute distress. HEENT: Appears pale. No cyanosis, clubbing, or icterus. He keeps his eyes open. Pupils bilaterally equal, reacting to light. He has a right-sided squint. Respiratory: Air entry bilaterally equal. No wheeze, rhonchi, or crackles. Cardiovascular: S1, S2 normal. No murmur or gallop. Abdomen: Soft, nontender. Extremities: No lower extremity edema. Neurologic: He is awake. ASSESSMENT AND PLAN: 1. Right upper lobe poorly differentiated small cell lung carcinoma, extensive staging with bilateral adrenal, bilateral cerebral, and/or cerebellar metastases. He has a poor prognosis considering his extensive stage cancer and he is on comfort measures only. Continue chlordiazepoxide for anxiety as needed, lorazepam IV for anxiety. Continue p.o. [place] and intravenous morphine as needed for pain. Continue dexamethasone and Keppra for primary seizure prevention. He does not have insurance and so he could not qualify for hospice service. 2. Other problems. History of chronic obstructive pulmonary disease. He does not appear to be in acute distress. Continue as needed laxative for constipation. 3. Oral thrush. Continue patient on nystatin. DISPOSITION: Patient remains inside the hospital on comfort measures only. Plan of care was discussed with the nursing team. cc: Yazan Morris MD
[2018-02-24] MEDS: NORCO-5 PO SCH ×2 (04:39→10:56)
[2018-02-24] MEDS: NS 1,000 ML IV SCH (05:32)
[2018-02-24] MEDS: MORPHINE IV PRN ×2 (05:32→11:02)
[2018-02-24] MEDS ORDERED: DECADRON IV SCH (09:00)
[2018-02-24] MEDS ORDERED: KEPPRA 500 MG in NS 100 ML IV SCH (09:00)
--- NOTE | 2018-02-24 09:49 | PROGRESS NOTE ---
DATE: 02/24/2018 OVERNIGHT: The patient's mental status had deteriorated, and he had stopped taking by mouth. His urine output had also decreased. SUBJECTIVE: When I saw patient today, he is more lethargic today than on previous days. She does not really answer any questions, keeps his eyes open, occasionally moves his head to verbal stimuli. OBJECTIVE: Vital signs: Temperature 98 degrees, pulse 97, blood pressure 102/76, saturating 90% on 2 to 3 L nasal cannula. General: Appears in mild respiratory distress. Lungs: Air entry bilateral equal. Vesicular breath sounds. No wheeze or rhonchi. He does have some gurgling sound in his throat, though. Heart: S1, S2 normal. No murmur or gallop. Abdomen: Scaphoid and nontender. Extremities: No lower extremity edema. Neurologic: He has a right-sided squint. He is awake, but not really alert. ASSESSMENT AND PLAN: 1. Right upper lobe poorly differentiated small cell lung cancer, extensive stage with bilateral adrenal, bilateral cerebral and cerebellar metastases. He has poor prognosis considering his extensive stage cancer, and he is on comfort measures only. Continue chlordiazepoxide for anxiety as needed. Continue lorazepam IV for anxiety, morphine IV for pain. Continue dexamethasone and Keppra IV for primary seizure prevention. Continue p.o. [place] as needed for pain. His medications have been changed to IV as his p.o. intake has decreased. He does not have insurance and so, he would not qualify for hospice services. 2. Other problems: History of chronic obstructive pulmonary disease. He is a little short of breath today. So, I will start him on albuterol/ipratropium nebulization. 3. Continue as needed laxative for constipation. 4. Oral thrush. Continue patient on nystatin swab. 5. Disposition. Patient remains inside the hospital for comfort measures only. cc: Yazan Morris MD
[2018-02-24] MEDS ORDERED: DUONEB (A & A) INH SCH (10:00)
[2018-02-24] MEDS: LIBRIUM PO SCH (10:55)
[2018-02-24] MEDS: MYCOSTATIN SUSP PO SCH ×2 (10:55→15:19)
[2018-02-24 11:39] VITALS: BP 108/77
--- NOTE | 2018-02-25 03:43 | DISCHARGE SUMMARY ---
ADMISSION DATE: 01/21/2018 DISCHARGE DATE: 02/24/2018 TIME OF : 1530 p.m. CAUSE OF : Metastatic small cell lung cancer. CONTRIBUTING CAUSES OF : COPD. DISCHARGE SUMMARY: Mr. Magdaleno was a 62-year-old, man with a history of COPD who was initially admitted on 01/21/2018 for recurrent multiple falls and weakness with weight loss. In the emergency room, head CT was performed which had suggested multiple brain masses with vasogenic edema. He was admitted for further management. Further investigation had found out that he had a right upper lobe lung mass of about 5 x 3 cm. Considering his metastatic lung cancer with pathology showing small cell lung cancer, he had a poor prognosis. He had expressed his wishes to be comfort measures only. Since that time, all the care was directed towards making him pain- free, anxiety-free, and comfort measures. His pain was well controlled. He at 3:30 p.m. on 02/24/2018. I evaluated him at bedside. He did not have radial or carotid pulses. He did not have spontaneous breathing on auscultation. He did not have heart activity on auscultation. His pupils were fixed, dilated, not reacting. I conveyed the news of his to his daughter and his friend. cc: Yazan Morris MD
== END 2018-02-24 15:30 | disposition expired | DRG 843 ==
LOC: ED 09:11 → SUATTDRO 18:02 → EDIPHOLD 18:02 → ICU 20:12 → 4N 01-25 15:13 → 3N 02-06 16:35
PROVIDERS: ATTEND Internal Medicine
CPT/HCPCS: 36415; 70450; 71020; 71046; 71260; 74177; 80048; 80053; 80069; 80101; 80301; 80307; 80324; 80345; 80346; 80353; 80358; 80361; 80365; 81001; 82378; 82607; 82728; 82746; 82948; 83540; 83550; 83615; 83735; 83992; 84100; 84439; 84443; 85025; 87015; 87070; 87077; 87102; 87116; 87147; 87184; 87205; 87206; 87798; 88112; 88173; 88305; 94640; 94761; 96374; 96375; 97110; 97162; 97530; 99285; A9270; C9113; G0431; G0434; G0479; G0480; J0171; J0696; J1100; J1953; J2060; J2270; J2405; J3010; J7030; J8540; Q9967; S0164; XXXXX